=== PATIENT | male | born 1945 | race Caucasian/White ===

== ENCOUNTER 2016-08-13 17:44 | Inpatient (IN) | payer MEDICARE ==
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
--- NOTE | ~2016-08-13 | CT4 ---
[facility] A Service of [facility] & [facility] RADIOLOGY TEXT RESULTS PATIENT: COSTA PRICE LOCATION: [facility] 55-01 : [birth year] UNIT #: [id number] AGE: [address]: Julienne Rowley MD SEX: M ORDER DR: [id number] [facility] [address] [facility]. [place], [place] [address] [id number] I MR#: [id number] Acc #: [id number] NAME: COSTA PRICE : 1945 SEX: M STUDY DATE/TIME: 08/26/2016 11:46 UNIT: [facility] ROOM: [facility] STUDY DESCRIPTION: CT Abd and Pelv Wo Cont Attending Physician: Julienne Rowley M.D. Ordering Physician: Dhaval Avila M.D. Primary Care Physician: Eze Lubin M.D. MEDICAL IMAGING REPORT This report is preliminary unless electronic signature is present EXAM CT abdomen and pelvis without contrast HISTORY Abdomen pain and hematuria for [address] abdomen and pelvis was performed without contrast. There is oral contrast material in the colon. This CT exam was performed with one or more of the following radiation dose reduction techniques: automatic control, adjustment of mA and/or kV according to patient size, and iterative reconstruction. CT ABDOMEN: Mild atelectasis in the posterior lung bases bilaterally. Multiple gallstones layering dependently in the gallbladder, likely measure less than 5 mm. No gallbladder distension. No biliary dilatation. The liver, spleen, pancreas, left kidney, and adrenal glands are normal. 4.7 cm simple cyst in the upper pole of the right kidney is incidentally noted. Normal caliber abdominal aorta. Gastrostomy tube extends into the mid gastric body. Mild gaseous distension of the sigmoid colon could reflect mild localized ileus. CT PELVIS: Mild presacral stranding is nonspecific and could be a chronic or secondary to edema or inflammation. No free fluid. Dumont catheter in the bladder. Appendectomy. No bowel dilatation in the pelvis. Postop changes and degenerative changes in the lower lumbar spine. IMPRESSION 1. No urinary calculi or obstruction. 2. Dumont catheter in the bladder. The bladder is decompressed. 3. Mild gaseous distension of the sigmoid colon could reflect mild localized ileus. 4. Multiple small gallstones. [facility] A Service of [facility] RADIOLOGY TEXT RESULTS PATIENT: COSTA PRICE LOCATION: [facility] [id number] : [birth year] UNIT #: [id number] AGE: [address]: Julienne Rowley MD SEX: M ORDER DR: 5. 4.7 cm simple cyst in the upper pole of the right kidney is incidentally noted. 6. Mild nonspecific presacral stranding could be chronic or could be due to edema or inflammation but there are no adjacent fluid collections in the pelvis. Dictated by... Rohit Adames M.D. THIS IS AN ELECTRONICALLY VERIFIED REPORT Rohit Adames M.D. at 08/27/2016 10:32 PM EARNEST/bety TD: 08/27/2016 01:05 JOB #: [id number] MEDICAL IMAGING REPORT Page 1 of 1 COPY
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
--- NOTE | ~2016-08-13 | CT16 ---
[facility] A Service of [facility] & [facility] RADIOLOGY TEXT RESULTS PATIENT: COSTA PRICE LOCATION: [address] : [birth year] UNIT #: [id number] AGE: [address]: Julienne Rowley MD SEX: M ORDER DR: [id number] [facility] [address]. [place], [place] [address] [id number] I MR#: [id number] Acc #: [id number] NAME: COSTA PRICE : 1945 SEX: M STUDY DATE/TIME: 08/15/2016 UNIT: [facility] ROOM: [facility] STUDY DESCRIPTION: CT Angio Chest for PE Attending Physician: Julienne Rowley M.D. Ordering Physician: Kaity Morales M.D. Primary Care Physician: Eze Lubin M.D. MEDICAL IMAGING REPORT This report is preliminary unless electronic signature is present EXAM CT angiogram chest for pulmonary embolism 08/15/2016 1234 hours HISTORY 71-year-old man with acute hypoxia and respiratory failure today. Evaluate for pulmonary embolism. COMPARISON Chest CT 08/14/2016. TECHNIQUE Dynamic helical CT angiographic images were obtained from the thoracic inlet through the adrenal glands. 3-D sagittal and coronal reconstructions were performed. Contrast was Isovue-370 75 mL. Total exam DLP 545 mGy/cm. This CT exam was performed with one or more of the following radiation dose reduction techniques: automatic exposure control, adjustment of mA and/or kV according to patient size, and iterative reconstruction. FINDINGS Images through the thoracic inlet demonstrate no thyroid mass or adenopathy. There is a right PICC line with tip terminating in the SVC. Images through the chest demonstrate diagnostic quality opacification of the pulmonary arteries which are normal in caliber. There are no filling defects to suggest the presence of pulmonary emboli. The very peripheral lower lobe vessels are difficult to assess given the degree of consolidation but some opacified vessels are present, excluding the presence of large emboli. The aorta is well opacified and normal in caliber. There is no dissection. Cardiac chambers, pericardium and esophagus are normal. STS. [facility] A Service of [facility] & [facility] RADIOLOGY TEXT RESULTS PATIENT: COSTA PRICE LOCATION: [facility] CIC2-05 : 43 UNIT #: [id number] AGE: [address]: Julienne Rowley MD SEX: M ORDER DR: Lung window images demonstrate moderately severe emphysematous change in both lungs. There is pulmonary venous distension without definite edema. There is mild atelectasis in the lingular segment of the left upper lobe. There is persistent airspace density at both medial lung bases similar to 08/14/2016. This could represent pneumonia or atelectasis. No new areas of parenchymal abnormality are seen. IMPRESSION 1. There is no evidence of pulmonary embolism. The very peripheral vessels in the lower lobes are somewhat difficult to assess given the persistent consolidation but no large emboli in the lower lobes are seen. 2. Normal aorta without dissection. 3. Persistent znblh-pwdndls-vcbj-left medial basal airspace changes with air bronchograms. This could represent pneumonia or atelectasis. 4. No significant pleural effusions. 5. Stable underlying emphysematous change with atelectasis in the lingular segment of the left upper lobe. There is essentially no appreciable change from 08/14/2016. 6. Limited views through the upper abdomen demonstrate gallstones in the gallbladder without evidence of cholecystitis. Dictated by... Marie Mary M.D. THIS IS AN ELECTRONICALLY VERIFIED REPORT Marie Mary M.D. at 08/16/2016 9:16 AM THELMA/gray TD: 08/15/2016 18:11 JOB #: [id number] MEDICAL IMAGING REPORT Page 1 of 1 COPY
--- NOTE | ~2016-08-13 | CR72 ---
[facility] A Service of [facility] & [facility] & [facility] RADIOLOGY TEXT RESULTS PATIENT: COSTA PRICE LOCATION: [address] : 43 UNIT #: [id number] AGE: [address]: Julienne Rowley MD SEX: M ORDER DR: [id number] [facility] [address] [place], [place] [address] [id number] I MR#: [id number] Acc #: [id number] NAME: COSTA PRICE : 1945 SEX: M STUDY DATE/TIME: 08/15/2016 17:06 UNIT: [facility] ROOM: [facility] STUDY DESCRIPTION: CR Chest Single View Portable Attending Physician: Julienne Rowley M.D. Ordering Physician: Julienne Rowley M.D. Primary Care Physician: Eze Lubin M.D. MEDICAL IMAGING REPORT This report is preliminary unless electronic signature is present EXAM Portable chest INDICATIONS Follow up pneumothorax. PROCEDURE Frontal view chest. COMPARISON STUDIES 08/15/2016 at 15:28 hours FINDINGS Small right apical pneumothorax is unchanged from the prior. No new dense consolidation. IMPRESSION Stable small right apical pneumothorax Dictated by... Terry Jurado M.D. THIS IS AN ELECTRONICALLY VERIFIED REPORT Terry Jurado M.D. at 08/16/2016 7:36 AM AUBREY/marzena TD: 08/15/2016 23:24 JOB #: [id number] MEDICAL IMAGING REPORT Page 1 of 1 COPY
--- NOTE | ~2016-08-13 | CT71 ---
[facility] A Service of [facility] & [facility] RADIOLOGY TEXT RESULTS PATIENT: COSTA PRICE LOCATION: [place] [address] : 43 UNIT #: [id number] AGE: [address]: Julienne Rowley MD SEX: M ORDER DR: [id number] [facility] [address] [facility]. [place], [place] [address] [id number] I MR#: [id number] Acc #: [id number] NAME: COSTA PRIEC : 1945 SEX: M STUDY DATE/TIME: 08/16/2016 11:55 UNIT: [facility] ROOM: [facility] STUDY DESCRIPTION: CT Head Wo Contrast Attending Physician: Julienne Rowley M.D. Ordering Physician: Julienne Rowley M.D. Primary Care Physician: Eze Lubin M.D. MEDICAL IMAGING REPORT This report is preliminary unless electronic signature is present EXAM CT of the head without contrast 08/16/2016 INDICATION Increasing confusion since August 14, 2016. Patient had a head CT on August 13, 2016, which did not show any acute intracranial findings. TECHNIQUE Axial CT images were obtained from the vertex of the skull through skull base. No intravenous contrast material was administered. This CT exam was performed with one or more of the following radiation dose reduction techniques: automatic exposure control, adjustment of mA and/or kV according to patient size, and iterative reconstruction. FINDINGS No acute intracranial hemorrhage is identified. The patient has diffuse cerebral atrophy with compensatory ventricular dilatation which is in keeping with the age of 71. Exam is degraded by motion artifact. Again no obvious acute intracranial hemorrhage is seen. Particularly pronounced within the posterior fossa. Review of bony windows does not demonstrate any aggressive osseous abnormalities. Patient does have partial opacification of the left mastoid air cells, which was also present on the prior study from August 13, 2016. No focal soft tissue abnormalities are identified. IMPRESSION. 1. Exam is degraded by motion artifact but no obvious acute intracranial process is seen. Specifically there is no evidence of acute hemorrhage, mass lesion or acute infarct. 2. Partial opacification of the left mastoid air cells not significantly changed when compared to the August 13, 2016 exam. [facility] A Service of [facility] & [facility] RADIOLOGY TEXT RESULTS PATIENT: COSTA PRICE LOCATION: [facility] CICCU2-05 : 43 UNIT #: [id number] AGE: [address]: Julienne Rowley MD SEX: M ORDER DR: Dictated by... Zuri Zhu M.D. THIS IS AN ELECTRONICALLY VERIFIED REPORT Zuri Zhu M.D. at 08/16/2016 4:58 PM FLASH/brook TD: 08/16/2016 15:25 JOB #: [id number] MEDICAL IMAGING REPORT Page 1 of 1 COPY
--- NOTE | ~2016-08-13 | CR72 ---
[facility] A Service of [facility] & [facility] RADIOLOGY TEXT RESULTS PATIENT: COSTA PRICE LOCATION: [place] [address] : 43 UNIT #: [id number] AGE: [address]: Julienne Rowley MD SEX: M ORDER DR: [id number] [facility] [address] [facility]. [place], [place] [address] [id number] I MR#: [id number] Acc #: [id number] NAME: COSTA PRICE : 1945 SEX: M STUDY DATE/TIME: 08/15/2016 15:24 UNIT: [facility] ROOM: [facility] STUDY DESCRIPTION: CR Chest Single View Portable Attending Physician: Julienne Rowley M.D. Ordering Physician: Julienne Rowley M.D. Primary Care Physician: Eze Lubin M.D. MEDICAL IMAGING REPORT This report is preliminary unless electronic signature is present EXAM Portable chest INDICATIONS Evaluate Dobbhoff tube placement. COMPARISON STUDIES Comparison with earlier today. FINDINGS There has been placement of a Dobbhoff tube and the tube is coiled within the right lung. There is a tiny right apical pneumothorax. The exam is otherwise unchanged. IMPRESSION Dobbhoff tube is coiled within the right lung. There is a tiny right apical pneumothorax. The findings were discussed with Angelito nurse practitioner in the ICU, at 1600 hours by telephone. Dictated by... Fernie Colon M.D. THIS IS AN ELECTRONICALLY VERIFIED REPORT Fernie Colon M.D. at 08/16/2016 7:45 AM CHARISSA/marzena TD: 08/15/2016 21:27 JOB #: [id number] MEDICAL IMAGING REPORT Page 1 of 1 COPY
--- NOTE | ~2016-08-13 | CO ---
Unit #: [id number] #: [id number] Patient: COSTA PRICE [id number] [place] [address] [facility]. [place], [place] [address] [id number] I MR#: [id number] NAME: COSTA PRICE ROOM: [facility] Age: 71 Sex: M Admission Date: 08/14/2016 : 1945 Attending Physician: Julienne Rowley M.D. Primary Care Physician: Eze Lubin M.D. CONSULTATION REPORT CHIEF COMPLAINT Sepsis. HISTORY OF PRESENT ILLNESS A 71-year-old gentleman was admitted from jail due to respiratory failure, sepsis. In the past, he has had a lumbar surgery for tethered cord release at [facility] on 07/12/2016. That procedure was followed by complications of wound infection with two I and Ds. The last was about 3 to 4 weeks ago. 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 His reports that his lumbar surgery has also improved function in his left leg. On his exam today, he is lethargic, confused, complains of hurting all over. He moves all extremities on request. His lung plascencia show rhonchi in the right lower lobe. His lumbar wound shows interrupted sutures in place. There is no erythema. No induration. No discharge. There is light discoloration around the wound edges. IMPRESSION Lethargy and pain due to sepsis, history of respiratory failure, history of lumbar wound infection. PLAN Plan is to get a CT of his lumbar spine without contrast to evaluate for fluid collection. If significant fluid collection is present, we would recommend I and D of lumbar wound. Dictated by... Santi Melton M.D. RTH/modl TD: 08/16/2016 22:59 JOB #: [id number] Unit #: [id number] #: [id number] Patient: COSTA PRICE CONSULTATION REPORT Page 1 of 1 X Santi Melton MD X CONSULTATION REPORT
--- NOTE | ~2016-08-13 | CT98 ---
[facility] A Service of [facility] & [facility] RADIOLOGY TEXT RESULTS PATIENT: COSTA PRICE LOCATION: [address] : 44 UNIT #: [id number] AGE: [address]: Julienne Rowley MD SEX: M ORDER DR: [id number] [facility] [address] [facility]. [place], [place] [address] [id number] MR#: [id number] Acc #: [id number] NAME: COSTA PRICE : 1945 SEX: M STUDY DATE/TIME: 08/16/2016 12:05 UNIT: [facility] ROOM: [facility] STUDY DESCRIPTION: CT Lumbar Spine Wo Cont Attending Physician: Julienne Rowley M.D. Ordering Physician: Julienne Rowley M.D. Primary Care Physician: Eze Lubin M.D. MEDICAL IMAGING REPORT This report is preliminary unless electronic signature is present EXAM CT lumbar spine without contrast. HISTORY 71-year-old male with abscess after lumbar surgery. Back pain since surgery 07/12/16. TECHNIQUE This CT exam was performed with one or more of the following radiation dose reduction techniques: automatic exposure control, adjustment of mA and/or kV according to patient size, and iterative reconstruction. FINDINGS Thin section axial images performed through the lumbar spine without contrast. Multiplanar reconstructed images reviewed at a workstation. Normal spinal alignment. There are thin marginal syndesmophytes extending from the thoracic into the lumbar region as well as bulky anterior syndesmophytes. Differential would include both ankylosing spondylitis, as well as diffuse idiopathic skeletal hyperostosis. DISH is favored due to the patient's age and the more bulky nature of the syndesmophytes. There is a sizable defect within the posterior elements of L5-S1 level probably represents the sequela of laminectomy. Continued abnormal induration within the soft tissues in this region but a discrete abscess or drainable fluid collection is not seen. There is extensive left L5-S1 facet arthropathy and to a lesser extent right L5-S1 facet arthropathy. At L4-5, there is a moderate to severe spinal stenosis due to a combination of disc bulge osteophyte and extensive facet arthrographic change. At L3-4 there is degenerative disc changes with circumferential disc bulge and facet arthrographic change contributing to moderate central canal stenosis and bilateral foraminal stenosis. At L2-3, mild disc space STS. [facility] A Service of [facility] & [facility] RADIOLOGY TEXT RESULTS PATIENT: COSTA PRICE LOCATION: [facility] CIC2-05 : 44 UNIT #: [id number] AGE: [address]: Julienne Rowley MD SEX: M ORDER DR: narrowing, mild facet arthropathy but no significant spinal or foraminal stenosis. L1-2 the disc spaces maintained. No spinal or foraminal stenosis. Visualized intraabdominal structures and retroperitoneal structures are unremarkable except for mild atherosclerotic changes. IMPRESSION 1. Postsurgical changes, posterior elements L5-S1 compatible with a decompressive laminectomy. There is continued induration of the paraspinal soft tissues within the region of the operative bed but a discrete drainable fluid collection or abscess is not identified though CT is less sensitive for evaluation of soft tissue pathology. 2. Multilevel degenerative disc disease as described above, level by level detail. Spinal and foraminal stenosis most pronounced L3-4, L4-5 due to combination of degenerative disc disease and facet arthropathy. 3. Flowing syndesmophytes, thoracic and lumbar spine, and also within the interspinous ligaments and interspinous processes. I suspect this represents DISH or diffuse idiopathic skeletal hyperostosis. 4. Not mentioned above, there is a sclerotic lesion within the left side of the L1 vertebral body, nonspecific, but imaging features favor benign process such as an enostosis or bone island. Dictated by... Joyce Colon M.D. THIS IS AN ELECTRONICALLY VERIFIED REPORT Joyce Colon M.D. at 08/17/2016 8:37 AM Kenrick TD: 08/16/2016 18:03 JOB #: [id number] MEDICAL IMAGING REPORT Page 1 of 1 COPY
--- NOTE | ~2016-08-13 | CT71 ---
[facility] A Service of [facility] RADIOLOGY TEXT RESULTS PATIENT: COSTA PRICE LOCATION: [facility] [address]34-56 : 44 UNIT #: [id number] AGE: [address]: Julienne Rowley MD SEX: M ORDER DR: [id number] [address] [address] [id number] MR#: [id number] Acc #: [id number] NAME: COSTA PRICE : 1945 SEX: M STUDY DATE/TIME: 08/13/2016 22:46 UNIT: [facility] ROOM: STUDY DESCRIPTION: CT Head Wo Contrast Attending Physician: Deejay Hughes M.D. Ordering Physician: Deejay Hughes M.D. Primary Care Physician: Eze Lubin M.D. MEDICAL IMAGING REPORT This report is preliminary unless electronic signature is present EXAM CT head INDICATION Weakness and lethargy for [address] of the head without contrast. This CT exam was performed with one or more of the following radiation dose reduction techniques: automatic exposure control, adjustment of mA and/or kV according to patient size, and iterative reconstruction. COMPARISON None available. FINDINGS The exam is degraded due to motion. There is no acute intracranial hemorrhage, mass lesion, or acute infarct. Lozano-white matter differentiation is normal. The ventricles and basilar cisterns are normal in size and configuration. No extraaxial collections. There is a small left mastoid effusion. IMPRESSION Motion-degraded exam, however no acute intracranial findings are identified. Dictated by... [facility] A Service of [facility] RADIOLOGY TEXT RESULTS PATIENT: COSTA PRICE LOCATION: [facility] [address]-60 : [birth year] UNIT #: [id number] AGE: [address]: Julienne Rowley MD SEX: M ORDER DR: Dominik Serrato M.D. THIS IS AN ELECTRONICALLY VERIFIED REPORT Dominik Serrato M.D. at 08/14/2016 2:48 AM Naina TD: 08/14/2016 00:21 JOB #: [id number] MEDICAL IMAGING REPORT Page 1 of 1 COPY
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
--- NOTE | ~2016-08-13 | CT57 ---
[facility] A Service of [facility] RADIOLOGY TEXT RESULTS PATIENT: COSTA PRICE [facility] UNIT #: [id number] AGE: [address]: Julienne Rowley MD SEX: M ORDER DR: [id number] [place] [address] [facility]. [place], [place] [address] [id number] I MR#: [id number] Acc #: [id number] NAME: COSTA PRICE : 1945 SEX: M STUDY DATE/TIME: 08/14/2016 3:15 UNIT: [facility] ROOM: [facility] STUDY DESCRIPTION: CT Chest Wo Cont Attending Physician: Julienne Rowley M.D. Ordering Physician: Deejay Hughes M.D. Primary Care Physician: Eze Lubin M.D. MEDICAL IMAGING REPORT This report is preliminary unless electronic signature is present EXAM CT chest INDICATION Weakness, shortness of air and cough. 2-day duration. Acute hypoxia. TECHNIQUE CT head without contrast. This CT exam was performed with one or more of the following radiation dose reduction techniques: automatic exposure control, adjustment of mA and/or kV according to patient size, and iterative reconstruction. COMPARISON Chest radiograph dated 08/14/2016. FINDINGS There is severe emphysema. Patient has near complete volume loss in the right lower lobe with multiple air bronchograms. There is a similar appearing area of consolidation/atelectasis in the left lower lobe. There is minimal airspace opacity in the lingula and left upper lobe. The central airways are patent. The heart is enlarged. There are some borderline enlarged mediastinal lymph nodes. No pericardial or pleural effusion. Limited images of the upper abdomen were obtained. There is no acute findings. Patient does have gallstones. IMPRESSION 1. Areas of consolidation and volume loss in both lower lobes. Given the presence of air bronchograms, this probably represents bilateral [facility] A Service [facility] RADIOLOGY TEXT RESULTS PATIENT: COSTA PRICE [facility] UNIT #: [id number] AGE: [address]: Julienne Rowley MD SEX: M ORDER DR: pneumonia. There is also more mild airspace opacity in the lingula and left upper lobe. 2. Severe emphysema. Dictated by... Dominik Serrato M.D. THIS IS AN ELECTRONICALLY VERIFIED REPORT Dominik Serrato M.D. at 08/14/2016 5:23 AM HUNTER/srikanth TD: 08/14/2016 04:20 JOB #: [id number] MEDICAL IMAGING REPORT Page 1 of 1 COPY
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
--- NOTE | ~2016-08-13 | FU ---
[facility] Nutrition Therapy DATE: 08/18/16 Patient: COSTA PRICE Physician: RAKESHIMR Address: [address] [facility] Room/Bed: [address], Zip: [place] [address] Admit Date: 08/14/16 Date of : 43 Height: 5 11 Weight: 189 86 NUTRITION MONITORING/FOLLOW-UP: Reason: PT SEEN FOR FOLLOW-UP/ENTERAL NUTRITION SUPPORT DX: ACUTE HYPOXIC RESPIRATORY FAILURE, PNA Anthropometrics: 5'11", WT: 189# (86 KG), BMI: 26.4 -ADMIT WEIGHT: 182# Labs: GLU: 139, BUN: 28, ALB: 3.4, K+:3.2, NA+:146 Meds: SOLU-MEDROL, PROTONIX, KCL, ZOFRAN, NACL I&O's: 1194/2415, 5 BMs NOTED Skin: STAGE 1 PRESSURE ULCER COCCYX (PREVIOUSLY NOTED) Estimated Nutrition Needs: 5676-4615 KCAL 83-108 G PRO Assessment: CHART REVIEWED AND EVENTS NOTED. PT SEEN FOR FOLLOW-UP. PT ASLEEP AT TIME OF VISIT. RD ATTEMPTED TO WAKE PT-UNABLE TO WAKE TO VERBAL CUES. PER RN AND CHART, QUALITY ASSURANCE ENGINEER EVALED PT BUT PT TOO LETHARGIC TO COMPLETE THE EVAL. OF NOTE, PT NPO X [address] NOTIFIED RN OF NPO X 4 DAYS, RD TO CONTACT MD. HADDAD TO CONTINUE TO FOLLOW. SEE RECOMMENDATIONS BELOW. Dx: INADEQUATE PROTEIN-ENERGY INTAKE R/T CURRENT DIAGNOSIS, BIPAP AEB NPO STATUS.-ACTIVE/RESOLVED NEW DX: INADEQUATE PROTEIN-ENERGY INTAKE T/Y CURRENT DIAGNOSIS AEB NPO X 4 DAYS. Intervention: 1. NPO X 4 DAYS Monitoring, Evaluation and Goals: 1. ENTERAL NUTRITION; PROVIDE >80% ESTIMATED NUTRIENT NEEDS AT GOAL X 24 HOURS-NOT MET 2. ORAL INTAKE; ADVANCE DIET PER QUALITY ASSURANCE ENGINEER & CONSUME >50% OF MEALS W/NO C/O N/V/D-NOT MET 3. LABS; WNL-NOT MET/ACTIVE MONITOR: -PLANS FOR SUPPORT -QUALITY ASSURANCE ENGINEER RE-EVAL -LABS -WEIGHTS [facility] Nutrition Therapy DATE: 08/18/16 Patient: COSTA PRICE Physician: RAKESHIMR Address: [address] [place] [address]/Bed: [address], Zip: [place] [address] Admit Date: 08/14/16 Date of : 44 Height: 5 11 Weight: 189 86 Recommendations: 1. RECOMMEND FOR QUALITY ASSURANCE ENGINEER RE-EVAL FOR SAFE SWALLOW. OF NOTE, PT WAS RECEIVING MECHANICAL SOFT + THINS AT INTERMEDIATE 2. IF PT UNABLE TO TOLERATE PO INTAKE, PLACE DHT AND BEGIN ALTERNATIVE NUTRITION SUPPORT OF JEVITY 1.5 @ 20 ML/HR, ADVANCE 10 ML q 8 HOURS TO GOAL RATE OF 60 ML/HR -PROVIDES 2160 KCAL, 92 G PRO, 1094 ML FREE H20 ADD FREE H20 FLUSHES PER MD RD WILL F/U PER PROTOCOL PT IS MOD/SEVERELY COMPROMISED Respectfully, YNES SHAH MS, RD, LD Food and Nutritional Services [facility] cc: client file
--- NOTE | ~2016-08-13 | EKG ---
PATIENT: COSTA PRICE UNIT #: [id number] Ventricular Rate: 94 BPM Atrial Rate: 94 BPM P-R Interval: 184 ms QRS Duration: 134 ms Q-T Interval: 386 ms QTC Calculation(Bezet): 482 ms P [place]: 61 degrees Calculated R [place]: -69 degrees Calculated T [place]: 76 degrees Diagnosis Line: Normal sinus rhythm Diagnosis Line: Left axis deviation Diagnosis Line: Left bundle branch block Diagnosis Line: Abnormal ECG Diagnosis Line: No previous ECGs available Diagnosis Line: Confirmed by STEPH JOE MD ([id number]) on Diagnosis Line: 08/14/2016 8:10:17 AM INTERPRETING MD: HEATH TERRELL
--- NOTE | ~2016-08-13 | US84 ---
[id number] [facility] [address] [facility]. [place], [place] [address] [id number] I MR#: [id number] Acc #: [id number] NAME: COSTA PRICE : 1945 SEX: M STUDY DATE/TIME: 08/15/2016 12:03 UNIT: [facility] ROOM: [facility] STUDY DESCRIPTION: US LE Veins Complete Reed Stdy Attending Physician: Julienne Rowley M.D. Ordering Physician: Kaity Morales M.D. Primary Care Physician: Eze Lubin M.D. MEDICAL IMAGING REPORT This report is preliminary unless electronic signature is present EXAM Bilateral leg vein Doppler 08/15 INDICATIONS Leg pain with shortness of air for the last 2 years. History of spine surgery 2 weeks ago. TECHNIQUE Venous ultrasound examination of both lower extremities was performed using grayscale, spectral Doppler and color flow Doppler imaging. FINDINGS The examination is negative. There is no evidence of deep venous thrombus from the groin to the lower calf bilaterally. Visualized greater saphenous veins are also patent. IMPRESSION Negative examination. No evidence of lower extremity deep venous thrombosis. Dictated by... Antolin Wesley Jr., M.D. THIS IS AN ELECTRONICALLY VERIFIED REPORT Antolin Wesley Jr., M.D. at 08/16/2016 10:17 AM BENJI/gray TD: 08/15/2016 18:01 JOB #: [id number] MEDICAL IMAGING REPORT Page 1 of 1 COPY
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
--- NOTE | ~2016-08-13 | CR72 ---
[facility] A Service of [facility] RADIOLOGY TEXT RESULTS PATIENT: COSTA PRICE LOCATION: [place] [id number] : 44 UNIT #: [id number] AGE: [address]: Julienne Rowley MD SEX: M ORDER DR: [id number] [facility] [address] [facility]. [place], [place] [address] [id number] I MR#: [id number] Acc #: [id number] NAME: COSTA PRICE : 1945 SEX: M STUDY DATE/TIME: 08/14/2016 6:26 UNIT: [facility] ROOM: [facility] STUDY DESCRIPTION: CR Chest Single View Portable Attending Physician: Julienne Rowley M.D. Ordering Physician: Julienne Rowley M.D. Primary Care Physician: Eze Lubin M.D. MEDICAL IMAGING REPORT This report is preliminary unless electronic signature is present EXAM Portable chest dated 08/14 COMPARISON 08/13 HISTORY Shortness of breath, cough, weakness since August 14 (1 day) HISTORY Acute hypoxemia and respiratory failure. FINDINGS An AP portable view is obtained. Cardiac size is stable. Right-sided PICC line terminates in the SVC. Redemonstrated are perihilar infiltrates. These have not changed significantly. CONCLUSION No interim change Dictated by... Gordon Jones M.D. THIS IS AN ELECTRONICALLY VERIFIED REPORT Gordon Jones M.D. at 08/15/2016 5:06 PM Carolyn TD: 08/14/2016 07:24 JOB #: [id number] MEDICAL IMAGING REPORT Page 1 of 1 COPY
--- NOTE | ~2016-08-13 | CR72 ---
[facility] A Service of [facility] & [facility] RADIOLOGY TEXT RESULTS PATIENT: COSTA PRICE LOCATION: [place] [address] : [birth year] UNIT #: [id number] AGE: [address]: Julienne Rowley MD SEX: M ORDER DR: [id number] [facility] [address] [facility]. [place], [place] [address] [id number] I MR#: [id number] Acc #: [id number] NAME: COSTA PRICE : 1945 SEX: M STUDY DATE/TIME: 08/15/2016 15:28 UNIT: [facility] ROOM: [facility] STUDY DESCRIPTION: CR Chest Single View Portable Attending Physician: Julienne Rowley M.D. Ordering Physician: Julienne Rowley M.D. Primary Care Physician: Eze Lubin M.D. MEDICAL IMAGING REPORT This report is preliminary unless electronic signature is present EXAM Portable chest INDICATIONS Dobbhoff tube placed in the lung. Concern for pneumothorax. Followup. COMPARISON STUDIES Comparison with 08/15/2016. The Dobbhoff tube has been removed. The right pneumothorax has increased in size. The apical component of the pneumothorax measures roughly 2.5 cm. The remainder the study is unchanged. IMPRESSION Increase in size of right apical pneumothorax as described. Removal of Dobbhoff tube. Findings were discussed with Angelito nurse practitioner in the ICU, by telephone at 1600 hours. Dictated by... Fernie Colon M.D. THIS IS AN ELECTRONICALLY VERIFIED REPORT Fernie Colon M.D. at 08/16/2016 7:45 AM CHARISSA/marzena TD: 08/15/2016 21:30 JOB #: [id number] MEDICAL IMAGING REPORT Page 1 of 1 COPY
--- NOTE | ~2016-08-13 | CR72 ---
[facility] A Service of [facility] & [facility] RADIOLOGY TEXT RESULTS PATIENT: COSTA PRICE LOCATION: [place] [address] : [birth year] UNIT #: [id number] AGE: [address]: Julienne Rowley MD SEX: M ORDER DR: [id number] [facility] [address] [place], [place] [address] [id number] I MR#: [id number] Acc #: [id number] NAME: COSTA PRICE : 1945 SEX: M STUDY DATE/TIME: 08/19/2016 2:17 UNIT: [facility] ROOM: [facility] STUDY DESCRIPTION: CR Chest Single View Portable Attending Physician: Julienne Rowley M.D. Ordering Physician: Kaity Morales M.D. Primary Care Physician: Eze Lubin M.D. MEDICAL IMAGING REPORT This report is preliminary unless electronic signature is present EXAM Portable chest INDICATION Shortness of air today. PROCEDURE Frontal view chest. COMPARISON 08/18/2016 FINDINGS Heart size unchanged. No new dense opacity. No visible pneumothorax. IMPRESSION Stable. Dictated by... Terry Jurado M.D. THIS IS AN ELECTRONICALLY VERIFIED REPORT Terry Jurado M.D. at 08/19/2016 9:57 PM AUBREY/harman TD: 08/19/2016 09:55 JOB #: [id number] MEDICAL IMAGING REPORT Page 1 of 1 COPY
--- NOTE | ~2016-08-13 | DS ---
Unit #: [id number] #: [id number] Patient: COSTA PRICE [id number] [place] [address] [facility]. [place], [place] [address] [id number] I MR#: [id number] NAME: COSTA PRICE ROOM: 55 Age: 71 Sex: M Admission Date: 08/14/2016 : 1945 Discharge Date: 08/28/2016 Attending Physician: Julienne Rowley M.D. Primary Care Physician: Eze Lubin M.D. DISCHARGE SUMMARY DATE OF DISCHARGE Pending August 28, 2016. REASON FOR ADMISSION Acute hypoxic respiratory failure, healthcare-acquired pneumonia. HISTORY OF PRESENT ILLNESS/HOSPITAL COURSE The patient is a very pleasant 71-year-old male, who originally was admitted secondary to acute hypoxic respiratory failure. He had recently undergone spinal surgery at [facility] with postoperative complications, with I believe a postoperative infection, had been re-admitted to [facility] secondary to these issues, underwent a surgical washout and/or evaluation. At that point in time, he was subsequently transferred to a rehab facility. While he was at the rehab facility, he began developing acute onset of shortness of breath. Subsequently, he was transferred to [facility] ER for further evaluation. At that point in time, consideration was given to transfer the patient to [facility]. However, they were on diversion and thus patient was admitted and placed in our ICU. While he was in the ICU, he was treated for healthcare-acquired pneumonia secondary to his recent hospital admissions. Consultation was also placed to Dr. Morales and associates for further evaluation as well as infectious disease services secondary to antibiotic support. Those services continued to follow the patient through ICU course. Gradually, he was weaned off BiPAP and placed on Oxymizer and subsequently transitioned to O2 via nasal cannula between 2-4 L which is his routine baseline. His antibiotics were gradually de-escalated per recommendations of ID services. Will also maintain antibiotics, especially in regard to his recent spinal infection. Blood cultures from hospital course were otherwise negative. Secondary to chronic deconditioning, underwent several speech therapy evaluations and unfortunately had fairly significant dysphagia and was deemed inappropriate to tolerate anything by mouth and therefore consultation was placed to Dr. Crews of gastroenterology services and through this hospital course, patient underwent upper GI endoscopy with Unit #: [id number] #: [id number] Patient: COSTA PRICE PEG tube placement. He successfully was able to tolerate tube feeds. We also placed consultation to Dr. Bernard of cardiology services secondary to recurrent bradycardia as well as a prior history of left bundle branch block and myocardial infarction. They continued to follow the patient through hospital course as well. Beta blockers were held and rhythm and/or heart rate did improve. At the family's request, consultation was placed to Dr. Melton as he had seen the patient in the past from a spinal standpoint. He came, saw, and evaluated the patient. Recommended CT of lower spine which did not show any acute abscess, and he followed initial part of hospital stay in regard to spinal infection and/or recent surgery. He felt as though wound was healing appropriately. Patient then developed a mild acute renal insufficiency. At one point in time, his creatinine elevated to 1.9. His routine baseline is close to 1. We did have issues off and on with his Dumont catheter. His Lasix as well as ROBBY inhibitor were placed on hold. Subsequently, consultation was placed to urology services. The patient did develop some hematuria. His Dumont catheter was replaced. Ultimately, his repeat urinalysis did show yeast UTI. He was initiated on Diflucan. His hematuria is gradually resolving. It is likely a combination of both traumatic as well as acute infection. Unfortunately after trying to remove the Dumont catheter, the patient was unable to void. Therefore, he will be transitioned to rehab with a Dumont catheter at the present time. At this point in time, patient had significant deconditioning as well as weakness secondary to very prolonged hospital course. PT and OT services have both recommended rehab placement at time of discharge. Arrangements are being initiated for patient to be transitioned to rehab at time of discharge. FINAL DISCHARGE DIAGNOSES 1. Acute on chronic respiratory failure. 2. Healthcare-acquired pneumonia with completed antibiotic regimen. 3. Recent spinal surgery with postoperative infection now treated. 4. Chronic immobility syndrome. 5. Chronic deconditioning. 6. Hematuria, now resolving. 7. Yeast urinary tract infection. 8. Chronic obstructive pulmonary disease. 9. Chronic respiratory failure on home O2 between 2 to 4 L. 10. Hypertension. 11. Acute kidney injury, now resolved. 12. Chronic pain syndrome. 13. Dysphagia, status post percutaneous endoscopic gastrostomy tube placement. 14. Malnutrition, likely [id number]. 15. Anemia. 16. Left bundle branch block. 17. Systolic heart failure, followed by Dr. Bernard. Unit #: [id number] #: [id number] Patient: COSTA PRICE FINAL DISCHARGE MEDICATIONS 1. DuoNeb aerosol solution q.6 hours scheduled. 2. Symbicort 160/4.5 two puffs b.i.d. 3. Flomax 0.4 mg daily. 4. Tylenol 650 mg q.6 p.r.n. 5. Cymbalta 30 mg PEG daily. 6. Zofran 4 mg PEG q.6 p.r.n. 7. Norvasc 5 mg PEG daily. 8. [place] 5/325 one tablet q.4 PEG p.r.n. 9. Protonix 40 mg PEG b.i.d. 10. Sodium chloride 3% inhalation mini neb b.i.d. 11. Diflucan 150 PEG daily x5 days. Discharge hemoglobin 8.5. Discharge creatinine 0.5. DISCHARGE DISPOSITION Rehab. Dictated by... Andie Schrader/sonja TD: 08/28/2016 11:03 JOB #: [id number] DISCHARGE SUMMARY Page 1 of 1 X Julienne Rowley MD X DISCHARGE SUMMARY
--- NOTE | ~2016-08-13 | CR72 ---
[facility] A Service of [facility] & [facility] RADIOLOGY TEXT RESULTS PATIENT: COSTA PRICE LOCATION: [place] [address] : 44 UNIT #: [id number] AGE: [address]: Julienne Rowley MD SEX: M ORDER DR: [id number] [place] [id number] [facility]. [place], [place] [address] [id number] I MR#: [id number] Acc #: [id number] NAME: COSTA PRICE : 1945 SEX: M STUDY DATE/TIME: 08/16/2016 4:19 UNIT: [facility] ROOM: [facility] STUDY DESCRIPTION: CR Chest Single View Portable Attending Physician: Julienne Rowley M.D. Ordering Physician: Kaity Morales M.D. Primary Care Physician: Eze Lubin M.D. MEDICAL IMAGING REPORT This report is preliminary unless electronic signature is present EXAM Portable chest INDICATION Right pneumothorax. FINDINGS Single portable AP view of the chest compared to 08/15/2016. The right pneumothorax projects over the 3-4 intercostal space. This is slightly improved from the prior study. Left lung is unchanged. Heart and mediastinal contours stable. IMPRESSION Slight improvement in the right pneumothorax. Dictated by... Dominik Serrato M.D. THIS IS AN ELECTRONICALLY VERIFIED REPORT Dominik Serrato M.D. at 08/16/2016 11:21 PM HUNTER/cee TD: 08/16/2016 06:04 JOB #: [id number] MEDICAL IMAGING REPORT Page 1 of 1 COPY
--- NOTE | ~2016-08-13 | FU ---
[facility] Nutrition Therapy DATE: 08/22/16 Patient: COSTA PRICE Physician: RAKESHIMR Address: [address] Room/Bed: [address] [place] [address], Zip: [place] [address] Admit Date: 08/14/16 Date of : 43 Height: 5 11 Weight: 186 84.5 NUTRITION MONITORING/FOLLOW-UP: Reason: PT SEEN FOR FOLLOW-UP/TPN DX: ACUTE HYPOXIC RESPIRATORY FAILURE Anthropometrics: 5'11", WT: 186# (85 KG), BMI: 25.9 -WEIGHTS HAVE BEEN STABLE SINCE ADMIT Labs: GLU: 188, BUN: 31, ALB: 3.2, ALT:41 Meds: PREDNISONE, FUROSEMIDE, PROTONIX, KCL, MAG SULFATE, ZOFRAN, NACL I&O's: 2820/1754, 4 BMs NOTED Skin: STAGE ONE PRESSURE ULCER COCCYX (PREVIOUSLY NOTED) Estimated Nutrition Needs: 8789-2737 KCAL 83-108 G PRO Assessment: CHART REVIEWED AND EVENTS NOTED. PT SEEN FOR ENTERAL NUTRITION SUPPORT FOLLOW-UP. PT SLEEPY/LETHARGIC AT TIME OF VISIT RECEIVING ALTERNATIVE NUTRITION SUPPORT OF JEVITY 1.2 @ 30 ML/HR. FAMILY AT BEDSIDE REPORTED NO DIET QUESTIONS AT THIS TIME. OF NOTE, PT IS S/P PEG PLACEMENT ON 08/18/16 AND PLANS FOR D/C TO REHAB 2-3 DAYS. PER RN AND CHART, PT TOLERATING ENTERAL NUTRITION SUPPORT, NO ISSUES NOTED. RD TO CONTINUE TO FOLLOW. SEE RECOMMENDATIONS BELOW. Dx: INADEQUATE PROTEIN-ENERGY INTAKE R/T CLINICAL DIAGNOSIS AEB NPO X 4 DAYS.-RESOLVED NEW DX: INADEQUATE ENTERAL NUTRITION INFUSION R/T ENTERAL NUTRITION NOT AT GOAL AEB PT RECEIVING ~42% ESTIMATED NUTRIENT NEEDS. Intervention: 1. ENTERAL NUTRITION SUPPORT Monitoring, Evaluation and Goals: 1. ENTERAL NUTRITION; PROVIDE >80% ESTIMATED NUTRIENT NEEDS X 24 HOURS AT GOAL-NOT MET 2. ORAL INTAKE; ADVANCE DIET PER FINAL EXPENSE AGENT AND CONSUME >50% OF MEALS-NOT MET 3. LABS; WNL-IN PROGRESS NEW GOALS: 1. WEIGHTS; PROMOTE WEIGHT MAINTENANCE MONITOR: [facility] Nutrition Therapy DATE: 08/22/16 Patient: COSTA PRICE Physician: RAKESHIMR Address: [address] Room/Bed: [address] [place] [address], Zip: [place] [address] Admit Date: 08/14/16 Date of : 43 Height: 5 11 Weight: 186 84.5 -TF RATE/RESIDUALS -WEIGHTS -LABS Recommendations: 1. RECOMMEND ENTERAL NUTRITION SUPPORT OF JEVITY 1.5 @ 20 ML/HR, ADVANCE 10 ML q 6 HOURS TO GOAL RATE OF 60 ML/HR -PROVIDES 2160 KCAL, 92 G PRO, 1094 ML FREE H20 FLUSHES ADD FREE H20 FLUSHES OF 200 ML q 4 HOURS TO MEET PT'S CURRENT ESTIMATED FLUID NEEDS OR MANAGE PER MD 2. CONTINUE TO CONSULT FINAL EXPENSE AGENT FOR SAFE SWALLOW 3. CONTINUE TO OPTIMIZE BLOOD SUGAR CONTROL REGIMEN RD WILL F/U PER PROTOCOL PT IS MODERATELY COMPROMISED Respectfully, YNES SHAH MS, RD, LD Food and Nutritional Services [facility] cc: client file
--- NOTE | ~2016-08-13 | CR72 ---
[facility] A Service of [facility] RADIOLOGY TEXT RESULTS PATIENT: COSTA PRICE LOCATION: [address] : [birth year] UNIT #: [id number] AGE: [address]: Julienne Rowley MD SEX: M ORDER DR: [id number] [facility] [address] [facility]. [place], [place] [address] [id number] I MR#: [id number] Acc #: [id number] NAME: COSTA PRICE : 1945 SEX: M STUDY DATE/TIME: 08/16/2016 13:45 UNIT: [facility] ROOM: [facility] STUDY DESCRIPTION: CR Chest Single View Portable Attending Physician: Julienne Rowley M.D. Ordering Physician: Physician Non-Staff Primary Care Physician: Eze Lubin M.D. MEDICAL IMAGING REPORT This report is preliminary unless electronic signature is present EXAM Portable chest x-ray, 08/14/2016. HISTORY Pneumothorax. Acute hypoxia, respiratory failure, pneumothorax yesterday. TECHNIQUE AP radiograph of the chest is presented. COMPARISON 08/16/2016 at 0419 hours. FINDINGS Right extremity approach PICC unchanged. There is a small to moderate right-sided pneumothorax, unchanged from prior examination. It measures about 4.8 cm in width at the apex. No change. There is mild volume loss in the right lung. There is no evidence of tension pneumothorax. Underlying pulmonary vascular prominence persists. Linear interstitial densities in the bilateral lungs, right greater than left. Some of the right lung appearance could reflect atelectatic change given the pneumothorax. Interstitial edema is felt to be present, as well. This appearance is slightly more pronounced than on earlier examination. There are some patchy densities in the right upper and lower lung zone, as well, also likely representing a combination of mild atelectasis and edema. There is a small right pleural effusion. More linear densities at the left lung base favored to be atelectatic in nature. Stable cardiac enlargement. No acute-appearing bony abnormality. Dictated by... Gordon Molina M.D. [facility] A Service of [facility] & [facility] RADIOLOGY TEXT RESULTS PATIENT: COSTA PRICE LOCATION: [facility] : 43 UNIT #: [id number] AGE: [address]: Julienne Rowley MD SEX: M ORDER DR: THIS IS AN ELECTRONICALLY VERIFIED REPORT Gordon Molina M.D. at 08/17/2016 5:57 PM Carey TD: 08/16/2016 17:15 JOB #: [id number] MEDICAL IMAGING REPORT Page 1 of 1 COPY
--- NOTE | ~2016-08-13 | OR ---
Unit #: [id number] #: [id number] Patient: COSTA PRICE [id number] [address] [address] [id number] I MR#: [id number] NAME: COSTA PRICE ROOM: [facility] Date of Procedure: 08/18/2016 Admission Date: 08/14/2016 Surgeon: Nik Crews M.D. : 1945 Attending Physician: Julienne Rowley M.D. Primary Care Physician: Eze Lubin M.D. OPERATIVE REPORT PROCEDURE PERFORMED Esophagogastroduodenoscopy with PEG tube placement. INDICATIONS FOR PROCEDURE The patient with dysphagia, severe aspiration risk, undergoing evaluation with EGD for PEG tube placement. MEDICATIONS Monitored anesthesia. POSTOPERATIVE FINDINGS 1. EGD exam was completed to descending duodenum. Mild gastritis was noted. Rest of the exam was normal. 2. Successful placement of G-tube by push method in gastric body. PLAN See inpatient orders. DESCRIPTION OF PROCEDURE The patient was explained of the procedure, risks, and benefits. Informed consent was obtained from , fountain operator. Endo Team was brought to the ICU. Monitored anesthesia was given. The scope was introduced into the mouth and esophagus, stomach, duodenum, and distal duodenum. I identified a spot for the G-tube placement after finishing the exam. The skin was prepped. A small incision was made. Trocar cannula was passed through the incision and then pulled out. A wire was pushed through the trocar and then pulled out of the patient's mouth using a scope on the snare on the other side. A push method tube was then placed over the wire and pulled out of anterior abdominal wall, where it was secured with an external bumper. The scope was reintroduced into the mouth and inner bumper was nicely in place. No complications were noted. Gently, the scope was pulled out. He tolerated it well. Dictated by... Andie Elizabeth/red TD: 08/18/2016 18:16 JOB #: [id number] Unit #: [id number] #: [id number] Patient: COSTA PRICE CC: zEe Lubin M.D. OPERATIVE REPORT Page 1 of 1 X Nik Crews MD PROCEDURE OPERATIVE NOTE
--- NOTE | ~2016-08-13 | FU ---
[facility] Nutrition Therapy DATE: 08/25/16 Patient: COSTA PRICE Physician: RAKESHIMR Address: [address] [facility] [facility] [address] Room/Bed: [address] [place] [address], Zip: [place] [address] Admit Date: 08/14/16 Date of : 43 Height: 5 11 Weight: 193 87.7 NUTRITION MONITORING/FOLLOW-UP: Reason: ENTERAL NUTRITION SUPPORT FOLLOW-UP Anthropometrics: 5'11", WT: 193# (87.7 KG), BMI 26.9. - ADMIT WEIGHT 182# Labs: GLU 120 BUN 50 CA++ 8.0 ALB 3.2 Meds: NORVASC, NACL, PROTONIX, PREDNISONE I&O's: 4120/3700 Skin: STAGE ONE PRESSURE ULCER COCCYX (PREVIOUSLY NOTED) Estimated Nutrition Needs: 9453-1952 KCAL 83-108 G PRO Assessment: CHART REVIEWED, EVENTS NOTED. PT SEEN FOR ENTERAL NUTRITION SUPPORT FOLLOW UP. PT AWAKE AND RESPONSIVE AT TIME OF VISIT RECEIVING JEVITY 1.5 @ 60 ML/HR. PT HAD NO QUESTIONS AT THIS TIME. PER RN, PT IS TOLERATING ENTERAL NUTRITION SUPPORT, NO ISSUES AT THIS TIME (MINIMAL RESIDUALS). PT RECEIVING RD WILL CONTINUE TO FOLLOW. SEE RECOMMENDATIONS BELOW. Dx: INADEQUATE ENTERAL NUTRITION INTAKE INFUSION R/T ENTERAL NUTRITION NOT AT GOAL AEB PT RECEIVING ~42% ESTIMATED NUTRIENT NEEDS.-RESOLVED NEW DX: ADEQUATE ENTERAL NUTRITION INTAKE INFUSION R/T ENTERAL NUTRITION AT GOAL AEB PT RECEIVING ~85% ESTIMATED NUTRITION NEEDS (PER PUMP HISTORY). Intervention: 1. ENTERAL NUTRITION SUPPORT Monitoring, Evaluation and Goals: 1. ENTERAL NUTRITION; PROVIDE >80% ESTIMATED NUTRIENT NEEDS X 24 HOURS AT GOAL-MET 2. ORAL INTAKE; ADVANCE DIET PER CORN COOKER AND CONSUME >50% OF MEALS- NOT MET 3. LABS; WNL- IN PROGRESS 4. WEIGHTS; PROMOTE WEIGHT MAINTAINENCE- IN PROGRESS MONITOR: [facility] Nutrition Therapy DATE: 08/25/16 Patient: COSTA PRICE Physician: BROOKR Address: [address] [facility] [address] Room/Bed: [address] [place] [address], Zip: [place] [address] Admit Date: 08/14/16 Date of : 43 Height: 5 11 Weight: 193 87.7 -TF RATE/RESIDUALS -WEIGHTS -LABS Recommendations: 1. RECOMMEND CONTINUED ENTERAL NUTRITION SUPPORT OF JEVITY 1.5 @ 60 ML/HR TO REACH GOAL INTAKE -PROVIDES 2160 KCAL, 92 G PRO,1094 ML FREE H20 FLUSHES ADD FREE H20 FLUSHES OF 200 ML q 4 HOURS TO MEET PT'S CURRENT ESTIMATED FLUID NEEDS OR MANAGE PER MD. 2. CONTINUE TO CONSULT CORN COOKER FOR SAFE SWALLOW 3. CONTINUE TO OPTIMIZE BLOOD SUGAR REGIMEN. RD WILL F/U PER PROTOCOL. PT IS AT MODERATE NUTRITIONAL RISK. Respectfully, MARISOL MONROE, FIRE AND SAFETY HELPER YNES SHAH MS, RD, LD Food and Nutritional Services [facility] cc: client file
--- NOTE | ~2016-08-13 | CR72 ---
[facility] A Service of [facility] & [facility] RADIOLOGY TEXT RESULTS PATIENT: COSTA PRICE LOCATION: [place] [address] : [birth year] UNIT #: [id number] AGE: [address]: Julienne Rowley MD SEX: M ORDER DR: [id number] [facility] [address] [place], [place] [address] [id number] I MR#: [id number] Acc #: [id number] NAME: COSTA PRICE : 1945 SEX: M STUDY DATE/TIME: 08/20/2016 4:21 UNIT: [facility] ROOM: [facility] STUDY DESCRIPTION: CR Chest Single View Portable Attending Physician: Julienne Rowley M.D. Ordering Physician: Kaity Morales M.D. Primary Care Physician: Eze Lubin M.D. MEDICAL IMAGING REPORT This report is preliminary unless electronic signature is present EXAM Portable chest INDICATION Shortness of air and cough. PROCEDURE Frontal view chest. COMPARISON 08/19/2016 FINDINGS Stable heart size. Persistent patchy opacities. No new dense consolidation or visible pneumothorax. IMPRESSION Stable. Dictated by... Terry Jurado M.D. THIS IS AN ELECTRONICALLY VERIFIED REPORT Terry Jurado M.D. at 08/20/2016 10:05 PM AUBREY/harman TD: 08/20/2016 07:18 JOB #: [id number] MEDICAL IMAGING REPORT Page 1 of 1 COPY
--- NOTE | ~2016-08-13 | CR72 ---
[facility] A Service of [facility] & [facility] RADIOLOGY TEXT RESULTS PATIENT: COSTA PRICE LOCATION: [place] [address] : [birth year] UNIT #: [id number] AGE: [address]: Julienne Rowley MD SEX: M ORDER DR: [id number] [place] [id number] [place], [place] [address] [id number] I MR#: [id number] Acc #: [id number] NAME: COSTA PRICE : 1945 SEX: M STUDY DATE/TIME: 08/18/2016 4:48 UNIT: [facility] ROOM: [facility] STUDY DESCRIPTION: CR Chest Single View Portable Attending Physician: Julienne Rowley M.D. Ordering Physician: Kaity Morales M.D. Primary Care Physician: Eze Lubin M.D. MEDICAL IMAGING REPORT This report is preliminary unless electronic signature is present EXAM Single view chest INDICATION Cough and shortness of air. FINDINGS Single portable AP view of the chest compared to 08/17/2016. The right pneumothorax has resolved. Right PICC remains in place. Patchy bilateral airspace opacities, right greater than left are similar to the prior study. No pneumothorax. IMPRESSION 1. Resolution of the small right pneumothorax. 2. No change in bilateral airspace opacities. Dictated by... Dominik Serrato M.D. THIS IS AN ELECTRONICALLY VERIFIED REPORT Dominik Serrato M.D. at 08/22/2016 7:03 AM HUNTER/cee TD: 08/18/2016 06:17 JOB #: [id number] MEDICAL IMAGING REPORT Page 1 of 1 COPY
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
--- NOTE | ~2016-08-13 | CR72 ---
[facility] A Service of [facility] & [facility] RADIOLOGY TEXT RESULTS PATIENT: COSTA PRICE LOCATION: [place] [address] : 44 UNIT #: [id number] AGE: [address]: Julienne Rowley MD SEX: M ORDER DR: [id number] [facility] [address] [place], [place] [address] [id number] I MR#: [id number] Acc #: [id number] NAME: COSTA PRICE : 1945 SEX: M STUDY DATE/TIME: 08/15/2016 3:59 UNIT: [facility] ROOM: [facility] STUDY DESCRIPTION: CR Chest Single View Portable Attending Physician: Julienne Rowley M.D. Ordering Physician: Parish Campbell M.D. Primary Care Physician: Eze Lubin M.D. MEDICAL IMAGING REPORT This report is preliminary unless electronic signature is present EXAM Single view chest INDICATIONS Respiratory failure. Hypoxia. FINDINGS Single portable AP view of the chest compared 08/14/2016. Right PICC remains in place. Heart and mediastinal contours are unchanged. There is some increased interstitial markings in both lungs, similar to the prior study. No pneumothorax or significant effusion. IMPRESSION No interval change. Dictated by... Dominik Serrato M.D. THIS IS AN ELECTRONICALLY VERIFIED REPORT Dominik Serrato M.D. at 08/17/2016 12:23 AM HUNTER/brittany TD: 08/15/2016 08:01 JOB #: [id number] MEDICAL IMAGING REPORT Page 1 of 1 COPY
--- NOTE | ~2016-08-13 | CR72 ---
[facility] A Service of [facility] & [facility] RADIOLOGY TEXT RESULTS PATIENT: COSTA PRICE LOCATION: [place] [address] : 44 UNIT #: [id number] AGE: [address]: Julienne Rowley MD SEX: M ORDER DR: [id number] [facility] [address] [place], [place] [address] [id number] I MR#: [id number] Acc #: [id number] NAME: COSTA PRICE : 1945 SEX: M STUDY DATE/TIME: 08/17/2016 3:29 UNIT: [facility] ROOM: [facility] STUDY DESCRIPTION: CR Chest Single View Portable Attending Physician: Julienne Rowley M.D. Ordering Physician: Kaity Morales M.D. Primary Care Physician: Eze Lubin M.D. MEDICAL IMAGING REPORT This report is preliminary unless electronic signature is present EXAM Portable chest INDICATION Right pneumothorax. FINDINGS Single portable AP view of the chest compared to 08/16/2016. Small right apical pneumothorax is slightly improved. This is approximately 2 cm from the lung apex compared to 4.8 cm previously. Right PICC remains in place. Bilateral airspace opacities are similar to the prior study. IMPRESSION Decreased size of the small right apical pneumothorax. Dictated by... Dominik Serrato M.D. THIS IS AN ELECTRONICALLY VERIFIED REPORT Dominik Serrato M.D. at 08/17/2016 4:44 AM HUNTER/srikanth TD: 08/17/2016 04:41 JOB #: [id number] MEDICAL IMAGING REPORT Page 1 of 1 COPY
--- NOTE | ~2016-08-13 | CR6 ---
[facility] A Service of [facility] & [facility] RADIOLOGY TEXT RESULTS PATIENT: COSTA PRICE LOCATION: [facility] [id number] : 44 UNIT #: [id number] AGE: [address]: Julienne Rowley MD SEX: M ORDER DR: [id number] [facility] [address] [place], [place] [address] [id number] I MR#: [id number] Acc #: [id number] NAME: COSTA PRICE : 1945 SEX: M STUDY DATE/TIME: 08/23/2016 1232 UNIT: [facility] ROOM: [facility] STUDY DESCRIPTION: CR Abdomen Portable Sng View Attending Physician: Julienne Rowley M.D. Ordering Physician: Kaity Morales M.D. Primary Care Physician: Eze Lubin M.D. MEDICAL IMAGING REPORT This report is preliminary unless electronic signature is present EXAM Abdomen portable 08/23/2016 1232 hours HISTORY 71-year-old man with abdominal pain and blood in urine today. COMPARISON Chest x-ray 08/20/2016. No prior abdominal film for comparison. FINDINGS Supine views of the abdomen were performed. 1 film includes most of the left abdomen and 1 including includes most of the right abdomen. There is a nonspecific bowel gas pattern. A gastrostomy tube is seen in the stomach. There is oral contrast material within the right colon and distal small bowel. It is not clear to me when this was administered. There is no small bowel obstruction. There are multiple punctate hyperdensities seen in the right mid abdomen where there is some oral contrast material present. This could represent tiny stones in the right kidney or artifact related to stool contents. No definite stones are seen over the left kidney. There are lower pelvic phleboliths. IMPRESSION 1. Limited exam demonstrates dense oral contrast material through the right colon. This partially obscures the right kidney. 2. Gastrostomy tube is present in the stomach. There is no small bowel obstruction. 3. There are punctate hyperdensities projecting in the right mid abdomen where there is some oral contrast material present as well. Tiny stones within the right kidney cannot be excluded. No definite left renal or ureteral calculus is seen. Dictated by... [facility] A Service of [facility] RADIOLOGY TEXT RESULTS PATIENT: COSTA PRICE LOCATION: [facility] [id number] : [birth year] UNIT #: [id number] AGE: [address]: Julienne Rowley MD SEX: M ORDER DR: Marie Mary M.D. THIS IS AN ELECTRONICALLY VERIFIED REPORT Marie Mary M.D. at 08/24/2016 9:26 AM Franc TD: 08/23/2016 16:36 JOB #: [id number] MEDICAL IMAGING REPORT Page 1 of 1 COPY
--- NOTE | ~2016-08-13 | CR72 ---
[facility] A Service of [facility] RADIOLOGY TEXT RESULTS PATIENT: COSTA PRICE LOCATION: [facility] : 44 UNIT #: [id number] AGE: [address]: Deejay Hughes MD SEX: M ORDER DR: [id number] [facility] [address] [place], [place] [address] [id number] E MR#: [id number] Acc #: [id number] NAME: COSTA PRICE : 1945 SEX: M STUDY DATE/TIME: 08/13/2016 19:09 UNIT: [facility] ROOM: STUDY DESCRIPTION: CR Chest Single View Portable Attending Physician: Deejay Hughes M.D. Ordering Physician: Deejay Hughes M.D. Primary Care Physician: Eze Lubin M.D. MEDICAL IMAGING REPORT This report is preliminary unless electronic signature is present EXAM Frontal chest, 08/13/2016 INDICATIONS 71-year-old male with shortness of air today. TECHNIQUE Frontal chest was performed. COMPARISON None. FINDINGS There is a right-sided PICC line. Cardiac silhouette is within normal limits for technique. Vascularity within normal limits. There are coarsened interstitial markings suggestive of underlying emphysema and scarring. There are more confluent interstitial and faint alveolar opacities in the mid lung zones left greater than right, suspicious for small areas of pneumonitis or alveolitis. Follow up to resolution after appropriate therapy is recommended. We have no comparisons. No pneumothorax or effusion. There is old, healed granulomatous disease. Probable more confluent scarring in the left lower lobe. IMPRESSION 1. Imaging findings suggestive of chronic interstitial lung disease with superimposed areas of acute infiltrate in the perihilar and mid lung zones, left greater than right. Follow up to clearing after appropriate therapy is recommended. We have no comparisons. 2. There is no pneumothorax or effusion. Old healed granulomatous disease. 3. Incidental degenerative change in the shoulders bilaterally. 4. There may be pneumatoceles in both lower lobes. Suggest comparison to prior outside chest x-rays, if available for this patient, or at [facility] A Service of [facility] & [facility] RADIOLOGY TEXT RESULTS PATIENT: COSTA PRICE LOCATION: [facility] : 44 UNIT #: [id number] AGE: [address]: Deejay Hughes MD SEX: M ORDER DR: least imaging followup to resolution after appropriate therapy. STAT * RESULT Dictated by... Adis Kapoor M.D. THIS IS AN ELECTRONICALLY VERIFIED REPORT Adis Kapoor M.D. at 08/13/2016 8:42 PM LUIS CARLOS/sada TD: 08/13/2016 20:05 JOB #: [id number] MEDICAL IMAGING REPORT Page 1 of 1 COPY
[2016-08-13 18:45] LABS: BASOPHIL# 0.1 X10e3 (0-0.3); BASOPHIL% 0.7 % (0-2.5); EOSINOPHIL# 0.8 X10e3 (0-0.7); EOSINOPHIL% 6.8 % (0.0-7.0); HEMATOCRIT 32.7 % (38.0-50.0); HEMOGLOBIN 10.7 gm/dL (13.0-16.0); LYMPHOCYTE# 1.2 X10e3 (1.0-3.5); LYMPHOCYTE% 10.7 % (17.0-45.0); MEAN CELL VOLUME 89.9 FL (83-96); MEAN CORPUSCULAR HEMOGLOBIN 29.6 PG (28-34); MEAN CORPUSCULAR HGB CONC 32.9 g/dL (30-36); MEAN PLATELET VOLUME 9.5 FL (6.5-11.5); MONOCYTE# 0.7 X10e3 (0-1.0); MONOCYTE% 6.3 % (3.0-12.0); NEUTROPHIL# 8.6 X10e3 (1.5-7.1); NEUTROPHIL% 75.5 % (40-75); PLATELET COUNT 184 X10e3 (140-420); RED BLOOD COUNT 3.63 X10e (3.90-5.60); RED CELL DISTRIBUTION WIDTH 13.8 % (11.0-15.5); WHITE BLOOD COUNT 11.3 X10e3 (4.0-10.5)
[2016-08-13 18:52] LABS: DIFF IND NO
[2016-08-13 18:53] LABS: ARTERIAL BLD GAS O2 SATURATION 90.7 % (90.0-100.0); ARTERIAL BLOOD GAS CARBOXY HB 1.6 %sat (0.0-9.0); ARTERIAL BLOOD GAS HCO3 28.6 mmol/L; ARTERIAL BLOOD GAS MET HB 0.6 %sat (0.0-2.0); ARTERIAL BLOOD GAS PCO2 49.1 mmHg (35.0-45.0); ARTERIAL BLOOD GAS pH 7.373 (7.350-7.450)
[2016-08-13 18:54] LABS: ARTERIAL BLOOD GAS ALLEN TEST NORMAL; ARTERIAL BLOOD GAS ART SITE RIGHT RADIAL; ARTERIAL BLOOD GAS DELIVERY NASAL CANNULA; ARTERIAL BLOOD GAS PO2 64.6 mmHg (80.0-100); ARTERIAL DRAW? YES
[2016-08-13 19:00] LABS: INR 1.2; PARTIAL THROMBOPLASTIN TIME 27.4 SECONDS (23.5-31.3); PROTHROMBIN TIME (PATIENT) 12.5 SECONDS (9.6-11.5)
[2016-08-13 19:09] LABS: URINE APPEARANCE CLEAR; URINE BILIRUBIN NEG (NEG); URINE BLOOD NEG (NEG); URINE COLOR YELLOW; URINE GLUCOSE NEG (NEG); URINE KETONE 1+ (NEG); URINE LEUKOCYTE ESTERASE NEG (NEG); URINE NITRATE NEG (NEG); URINE PROTEIN 1+ (NEG); URINE SPECIFIC GRAVITY 1.025 (1.003-1.035); URINE UROBILINOGEN 0.2 MG/DL (NEG)
[2016-08-13 19:12] LABS: ALBUMIN SERUM 3.3 g/dL (3.5-5.0); BILIRUBIN, DIRECT 0.2 mg/dL (0.0-0.2); BILIRUBIN,INDIRECT 0.6 mg/dL (0.0-0.9); BILIRUBIN,TOTAL 0.8 mg/dL (0.2-2.0); BUN/CREATININE RATIO 38.57; CALCIUM SERUM 9.3 mg/dL (8.4-10.2); CREATININE SERUM 0.7 mg/dL (0.6-1.4); GLOM FILT RATE Estimated 94.3 mL/min (>60); MAGNESIUM 2.3 mg/dL (1.6-3.0); PHOSPHOROUS 3.5 mg/dL (2.5-4.6); POTASSIUM 4.2 mmol/L (3.5-5.1); PROTEIN TOTAL SERUM 8.1 g/dL (6.0-8.3)
[2016-08-13 19:12] LABS: URINE BACTERIA AUWI NEG (NEGATIVE); URINE SQUAMOUS EPITHELIAL CELL NONE SEEN /[HPF]
[2016-08-13 19:16] LABS: CULTURE INDICATED? NO; URINE SOURCE CATH
[2016-08-13 20:26] LABS: POC - CKMB 1.4 ng/mL (0.0-7.9); POC - TROPONIN <0.05 ng/mL (<=0.05)
[2016-08-13 20:46] LABS: POC - TROPONIN <0.05 ng/mL (<=0.05)
[2016-08-13] MEDS ORDERED: LOPID600 MG PO (21:09)
[2016-08-13] MEDS ORDERED: HYDROCODON-ACE1 EAC9 PO (21:09)
[2016-08-13] MEDS ORDERED: ALPRAZOLAM PO (21:10)
[2016-08-13] MEDS ORDERED: VITAMIN C500 MG PO (21:11)
[2016-08-13] MEDS ORDERED: SENNA8.6 M1 PO (21:12)
[2016-08-13] MEDS ORDERED: REMERON15 MG PO (21:13)
[2016-08-13] MEDS ORDERED: LYRICA100 MG PO (21:13)
[2016-08-13] MEDS ORDERED: ALENDRONATE SOD70 M1 PO (21:14)
[2016-08-13] MEDS ORDERED: ZINC SULFATE220 M1 PO (21:14)
[2016-08-13] MEDS ORDERED: FLOMAX0.4 M1 PO (21:14)
[2016-08-13 21:28] LABS: ARTERIAL BLD GAS O2 SATURATION 98.3 % (90.0-100.0); ARTERIAL BLOOD GAS CARBOXY HB 1.1 %sat (0.0-9.0); ARTERIAL BLOOD GAS HCO3 27.1 mmol/L; ARTERIAL BLOOD GAS MET HB 0.6 %sat (0.0-2.0); ARTERIAL BLOOD GAS PCO2 48.4 mmHg (35.0-45.0); ARTERIAL BLOOD GAS pH 7.357 (7.350-7.450)
[2016-08-13 21:30] LABS: ARTERIAL BLOOD GAS ALLEN TEST NORMAL; ARTERIAL BLOOD GAS ART SITE RIGHT RADIAL; ARTERIAL DRAW? YES
[2016-08-13] MEDS ORDERED: DITROPAN PO (21:55)
[2016-08-13] MEDS ORDERED: MIRALAX17 GM PO (21:56)
[2016-08-13] MEDS ORDERED: VITAMIN D-32000 UNI1 PO (21:58)
[2016-08-13] MEDS ORDERED: BISACODYL10 MG PR (21:58)
[2016-08-13] MEDS ORDERED: HEPARIN 1,1000 UNIT/ SUBQ (22:00)
[2016-08-13] MEDS ORDERED: MORPHINE S30 MG/301 PO (22:01)
[2016-08-13] MEDS ORDERED: NIACIN500 M2 PO (22:01)
[2016-08-13] MEDS ORDERED: M.V.I. ADULT10 ML (22:02)
[2016-08-13] MEDS ORDERED: ADRENOID CAPSU1 EACH PO (22:03)
[2016-08-13] MEDS ORDERED: OMEPRAZOLE20 M1 PO (22:04)
[2016-08-13] MEDS ORDERED: STRIVERDI RESPIM4 GM INH (22:04)
[2016-08-13] MEDS ORDERED: PROAIR RESPICL90 MCG INH (22:05)
[2016-08-13] MEDS ORDERED: TYLENOL325 M1 PO (22:06)
[2016-08-13] MEDS ORDERED: SYMBICORT 160/4.6 G1 INH (22:06)
[2016-08-14 02:54] LABS: BASOPHIL# 0.1 X10e3 (0-0.3); BASOPHIL% 0.5 % (0-2.5); EOSINOPHIL# 0.7 X10e3 (0-0.7); EOSINOPHIL% 6.9 % (0.0-7.0); HEMATOCRIT 31.8 % (38.0-50.0); HEMOGLOBIN 10.4 gm/dL (13.0-16.0); LYMPHOCYTE# 1.1 X10e3 (1.0-3.5); LYMPHOCYTE% 11.8 % (17.0-45.0); MEAN CELL VOLUME 90.4 FL (83-96); MEAN CORPUSCULAR HEMOGLOBIN 29.7 PG (28-34); MEAN CORPUSCULAR HGB CONC 32.9 g/dL (30-36); MEAN PLATELET VOLUME 9.2 FL (6.5-11.5); MONOCYTE# 0.6 X10e3 (0-1.0); MONOCYTE% 6.6 % (3.0-12.0); NEUTROPHIL# 7.1 X10e3 (1.5-7.1); NEUTROPHIL% 74.2 % (40-75); PLATELET COUNT 180 X10e3 (140-420); RED BLOOD COUNT 3.52 X10e (3.90-5.60); RED CELL DISTRIBUTION WIDTH 14.4 % (11.0-15.5); WHITE BLOOD COUNT 9.6 X10e3 (4.0-10.5)
[2016-08-14 03:28] LABS: ALBUMIN SERUM 3.2 g/dL (3.5-5.0); BILIRUBIN,TOTAL 0.7 mg/dL (0.2-2.0); BUN/CREATININE RATIO 34.28; CALCIUM SERUM 8.8 mg/dL (8.4-10.2); CREATININE SERUM 0.7 mg/dL (0.6-1.4); GLOM FILT RATE Estimated 94.3 mL/min (>60); MAGNESIUM 2.1 mg/dL (1.6-3.0); POTASSIUM 3.9 mmol/L (3.5-5.1); PROTEIN TOTAL SERUM 7.8 g/dL (6.0-8.3)
[2016-08-14 03:40] LABS: DIFF IND NO
[2016-08-14 04:34] LABS: ARTERIAL BLOOD GAS CARBOXY HB 0.9 %sat (0.0-9.0); ARTERIAL BLOOD GAS HCO3 25.6 mmol/L; ARTERIAL BLOOD GAS MET HB 0.7 %sat (0.0-2.0); ARTERIAL BLOOD GAS PCO2 42.9 mmHg (35.0-45.0); ARTERIAL BLOOD GAS pH 7.384 (7.350-7.450)
[2016-08-14 04:39] LABS: ARTERIAL BLOOD GAS ALLEN TEST NORMAL; ARTERIAL BLOOD GAS ART SITE RIGHT RADIAL; ARTERIAL DRAW? YES
[2016-08-14 04:42] LABS: CK TOTAL 18 IU/L (36-174)
[2016-08-14 11:29] LABS: CK TOTAL 19 IU/L (36-174)
[2016-08-15 04:02] LABS: ARTERIAL BLD GAS O2 SATURATION 93.9 % (90.0-100.0); ARTERIAL BLOOD GAS HCO3 24.6 mmol/L; ARTERIAL BLOOD GAS MET HB 0.5 %sat (0.0-2.0); ARTERIAL BLOOD GAS PCO2 40.9 mmHg (35.0-45.0); ARTERIAL BLOOD GAS pH 7.388 (7.350-7.450)
[2016-08-15 04:05] LABS: ARTERIAL BLOOD GAS ART SITE LEFT BRACHIAL; ARTERIAL BLOOD GAS DELIVERY NASAL CANNULA; ARTERIAL BLOOD GAS PO2 67.6 mmHg (80.0-100); ARTERIAL DRAW? YES
[2016-08-15 04:07] LABS: BASOPHIL% 0.1 % (0-2.5); HEMATOCRIT 28.9 % (38.0-50.0); HEMOGLOBIN 9.3 gm/dL (13.0-16.0); LYMPHOCYTE# 0.5 X10e3 (1.0-3.5); LYMPHOCYTE% 10.5 % (17.0-45.0); MEAN CELL VOLUME 91.6 FL (83-96); MEAN CORPUSCULAR HEMOGLOBIN 29.5 PG (28-34); MEAN CORPUSCULAR HGB CONC 32.3 g/dL (30-36); MEAN PLATELET VOLUME 9.5 FL (6.5-11.5); MONOCYTE# 0.1 X10e3 (0-1.0); MONOCYTE% 1.4 % (3.0-12.0); NEUTROPHIL# 4.4 X10e3 (1.5-7.1); PLATELET COUNT 161 X10e3 (140-420); RED BLOOD COUNT 3.15 X10e (3.90-5.60)
[2016-08-15 04:08] LABS: DIFF IND NO
[2016-08-15 04:33] LABS: BILIRUBIN,TOTAL 0.6 mg/dL (0.2-2.0); CALCIUM SERUM 8.4 mg/dL (8.4-10.2); CREATININE SERUM 0.5 mg/dL (0.6-1.4); GLOM FILT RATE Estimated 108.3 mL/min (>60); MAGNESIUM 2.1 mg/dL (1.6-3.0); PROTEIN TOTAL SERUM 7.3 g/dL (6.0-8.3)
[2016-08-15 05:01] LABS: PROCALCITONIN 0.13 NG/ML
[2016-08-16 04:11] LABS: BASOPHIL% 0.2 % (0-2.5); HEMATOCRIT 27.7 % (38.0-50.0); HEMOGLOBIN 9.1 gm/dL (13.0-16.0); LYMPHOCYTE# 0.7 X10e3 (1.0-3.5); LYMPHOCYTE% 9.4 % (17.0-45.0); MEAN CELL VOLUME 91.2 FL (83-96); MEAN CORPUSCULAR HGB CONC 32.9 g/dL (30-36); MEAN PLATELET VOLUME 9.4 FL (6.5-11.5); MONOCYTE# 0.3 X10e3 (0-1.0); MONOCYTE% 3.6 % (3.0-12.0); NEUTROPHIL# 6.2 X10e3 (1.5-7.1); NEUTROPHIL% 86.8 % (40-75); PLATELET COUNT 169 X10e3 (140-420); RED BLOOD COUNT 3.04 X10e (3.90-5.60); RED CELL DISTRIBUTION WIDTH 13.7 % (11.0-15.5); WHITE BLOOD COUNT 7.1 X10e3 (4.0-10.5)
[2016-08-16 04:12] LABS: DIFF IND NO
[2016-08-16 04:40] LABS: BILIRUBIN,TOTAL 0.7 mg/dL (0.2-2.0); CALCIUM SERUM 8.3 mg/dL (8.4-10.2); CREATININE SERUM 0.5 mg/dL (0.6-1.4); GLOM FILT RATE Estimated 108.3 mL/min (>60)
[2016-08-16 04:47] LABS: POTASSIUM 2.9 mmol/L (3.5-5.1)
[2016-08-16 04:48] LABS: ARTERIAL BLD GAS O2 SATURATION 96.4 % (90.0-100.0); ARTERIAL BLOOD GAS CARBOXY HB 0.8 %sat (0.0-9.0); ARTERIAL BLOOD GAS HCO3 20.7 mmol/L; ARTERIAL BLOOD GAS MET HB 1.2 %sat (0.0-2.0); ARTERIAL BLOOD GAS PCO2 30.1 mmHg (35.0-45.0); ARTERIAL BLOOD GAS PO2 97.9 mmHg (80.0-100); ARTERIAL BLOOD GAS pH 7.445 (7.350-7.450)
[2016-08-16 04:57] LABS: ARTERIAL BLOOD GAS ALLEN TEST NORMAL; ARTERIAL BLOOD GAS ART SITE LEFT RADIAL; ARTERIAL DRAW? YES
[2016-08-16 04:58] LABS: ARTERIAL BLOOD GAS DELIVERY HEATED HIGH FLOW
[2016-08-16 19:58] LABS: MAGNESIUM 2.2 mg/dL (1.6-3.0); POTASSIUM 3.2 mmol/L (3.5-5.1)
[2016-08-17 03:31] LABS: HEMATOCRIT 28.2 % (38.0-50.0); HEMOGLOBIN 9.2 gm/dL (13.0-16.0); LYMPHOCYTE# 0.5 X10e3 (1.0-3.5); LYMPHOCYTE% 9.7 % (17.0-45.0); MEAN CORPUSCULAR HEMOGLOBIN 29.2 PG (28-34); MEAN CORPUSCULAR HGB CONC 32.4 g/dL (30-36); MEAN PLATELET VOLUME 9.6 FL (6.5-11.5); MONOCYTE# 0.1 X10e3 (0-1.0); MONOCYTE% 2.5 % (3.0-12.0); NEUTROPHIL# 4.5 X10e3 (1.5-7.1); NEUTROPHIL% 87.8 % (40-75); PLATELET COUNT 177 X10e3 (140-420); RED BLOOD COUNT 3.14 X10e (3.90-5.60); RED CELL DISTRIBUTION WIDTH 13.7 % (11.0-15.5); WHITE BLOOD COUNT 5.1 X10e3 (4.0-10.5)
[2016-08-17 03:32] LABS: DIFF IND NO
[2016-08-17 03:51] LABS: CALCIUM SERUM 8.3 mg/dL (8.4-10.2); CREATININE SERUM 0.6 mg/dL (0.6-1.4); GLOM FILT RATE Estimated 100.5 mL/min (>60); MAGNESIUM 2.2 mg/dL (1.6-3.0); POTASSIUM 3.5 mmol/L (3.5-5.1)
[2016-08-18 03:36] LABS: HEMATOCRIT 27.9 % (38.0-50.0); HEMOGLOBIN 9.2 gm/dL (13.0-16.0); LYMPHOCYTE# 0.4 X10e3 (1.0-3.5); MEAN CELL VOLUME 89.4 FL (83-96); MEAN CORPUSCULAR HEMOGLOBIN 29.4 PG (28-34); MEAN CORPUSCULAR HGB CONC 32.9 g/dL (30-36); MEAN PLATELET VOLUME 9.3 FL (6.5-11.5); MONOCYTE# 0.1 X10e3 (0-1.0); MONOCYTE% 2.3 % (3.0-12.0); NEUTROPHIL# 4.6 X10e3 (1.5-7.1); NEUTROPHIL% 89.7 % (40-75); PLATELET COUNT 172 X10e3 (140-420); RED BLOOD COUNT 3.12 X10e (3.90-5.60); WHITE BLOOD COUNT 5.2 X10e3 (4.0-10.5)
[2016-08-18 03:37] LABS: DIFF IND YES
[2016-08-18 03:55] LABS: ALBUMIN SERUM 3.4 g/dL (3.5-5.0); BUN/CREATININE RATIO 46.66; CALCIUM SERUM 8.4 mg/dL (8.4-10.2); CREATININE SERUM 0.6 mg/dL (0.6-1.4); GLOM FILT RATE Estimated 100.5 mL/min (>60); MAGNESIUM 2.1 mg/dL (1.6-3.0); POTASSIUM 3.2 mmol/L (3.5-5.1)
[2016-08-18 04:00] LABS: PLATELET ESTIMATE DECREASED (NORMAL)
[2016-08-18 04:01] LABS: HYPOCHROMIA SL; STOMATOCYTE PRESENT
[2016-08-18 04:20] LABS: ARTERIAL BLD GAS O2 SATURATION 93.9 % (90.0-100.0); ARTERIAL BLOOD GAS CARBOXY HB 0.9 %sat (0.0-9.0); ARTERIAL BLOOD GAS HCO3 22.2 mmol/L; ARTERIAL BLOOD GAS MET HB 0.1 %sat (0.0-2.0); ARTERIAL BLOOD GAS PCO2 33.2 mmHg (35.0-45.0); ARTERIAL BLOOD GAS pH 7.433 (7.350-7.450)
[2016-08-18 04:38] LABS: ARTERIAL BLOOD GAS ALLEN TEST NORMAL; ARTERIAL BLOOD GAS ART SITE RIGHT RADIAL; ARTERIAL BLOOD GAS DELIVERY HEATED HIGH FLOW; ARTERIAL BLOOD GAS PO2 64.9 mmHg (80.0-100); ARTERIAL DRAW? YES
[2016-08-19 04:25] LABS: ARTERIAL BLD GAS O2 SATURATION 95.2 % (90.0-100.0); ARTERIAL BLOOD GAS CARBOXY HB 0.8 %sat (0.0-9.0); ARTERIAL BLOOD GAS HCO3 24.9 mmol/L; ARTERIAL BLOOD GAS MET HB 0.7 %sat (0.0-2.0); ARTERIAL BLOOD GAS PCO2 38.6 mmHg (35.0-45.0); ARTERIAL BLOOD GAS pH 7.418 (7.350-7.450)
[2016-08-19 04:37] LABS: ARTERIAL BLOOD GAS ALLEN TEST NORMAL; ARTERIAL BLOOD GAS ART SITE LEFT RADIAL; ARTERIAL BLOOD GAS PO2 76.8 mmHg (80.0-100); ARTERIAL DRAW? YES
[2016-08-19 04:38] LABS: ARTERIAL BLOOD GAS DELIVERY OPTIFLOW
[2016-08-19 05:12] LABS: HEMATOCRIT 28.6 % (38.0-50.0); HEMOGLOBIN 9.4 gm/dL (13.0-16.0); MEAN CORPUSCULAR HEMOGLOBIN 29.6 PG (28-34); MEAN CORPUSCULAR HGB CONC 32.9 g/dL (30-36); MEAN PLATELET VOLUME 9.8 FL (6.5-11.5); RED BLOOD COUNT 3.18 X10e (3.90-5.60); WHITE BLOOD COUNT 6.1 X10e3 (4.0-10.5)
[2016-08-19 06:09] LABS: ALBUMIN SERUM 3.4 g/dL (3.5-5.0); BILIRUBIN,TOTAL 0.6 mg/dL (0.2-2.0); BUN/CREATININE RATIO 41.42; CALCIUM SERUM 8.3 mg/dL (8.4-10.2); CREATININE SERUM 0.7 mg/dL (0.6-1.4); GLOM FILT RATE Estimated 94.3 mL/min (>60); MAGNESIUM 2.1 mg/dL (1.6-3.0); PROTEIN TOTAL SERUM 6.4 g/dL (6.0-8.3)
[2016-08-20 04:24] LABS: ARTERIAL BLD GAS O2 SATURATION 96.6 % (90.0-100.0); ARTERIAL BLOOD GAS HCO3 24.6 mmol/L; ARTERIAL BLOOD GAS MET HB 0.7 %sat (0.0-2.0); ARTERIAL BLOOD GAS PCO2 38.2 mmHg (35.0-45.0); ARTERIAL BLOOD GAS PO2 91.5 mmHg (80.0-100); ARTERIAL BLOOD GAS pH 7.418 (7.350-7.450)
[2016-08-20 04:45] LABS: ARTERIAL BLOOD GAS ALLEN TEST NORMAL; ARTERIAL BLOOD GAS ART SITE LEFT RADIAL; ARTERIAL DRAW? YES
[2016-08-20 04:46] LABS: ARTERIAL BLOOD GAS DELIVERY OPTIFLOW
[2016-08-20 05:33] LABS: BASOPHIL% 0.1 % (0-2.5); HEMATOCRIT 28.2 % (38.0-50.0); HEMOGLOBIN 9.3 gm/dL (13.0-16.0); LYMPHOCYTE# 0.3 X10e3 (1.0-3.5); LYMPHOCYTE% 4.6 % (17.0-45.0); MEAN CELL VOLUME 89.9 FL (83-96); MEAN CORPUSCULAR HEMOGLOBIN 29.6 PG (28-34); MEAN CORPUSCULAR HGB CONC 32.9 g/dL (30-36); MEAN PLATELET VOLUME 9.6 FL (6.5-11.5); MONOCYTE# 0.2 X10e3 (0-1.0); NEUTROPHIL# 6.9 X10e3 (1.5-7.1); NEUTROPHIL% 92.3 % (40-75); PLATELET COUNT 194 X10e3 (140-420); RED BLOOD COUNT 3.14 X10e (3.90-5.60); RED CELL DISTRIBUTION WIDTH 14.1 % (11.0-15.5); WHITE BLOOD COUNT 7.4 X10e3 (4.0-10.5)
[2016-08-20 05:36] LABS: DIFF IND NO
[2016-08-20 06:52] LABS: ALBUMIN SERUM 3.2 g/dL (3.5-5.0); CALCIUM SERUM 8.5 mg/dL (8.4-10.2); CREATININE SERUM 0.5 mg/dL (0.6-1.4); GLOM FILT RATE Estimated 108.3 mL/min (>60); MAGNESIUM 2.2 mg/dL (1.6-3.0); POTASSIUM 3.6 mmol/L (3.5-5.1); PROTEIN TOTAL SERUM 5.9 g/dL (6.0-8.3)
[2016-08-21 06:10] LABS: BASOPHIL% 0.1 % (0-2.5); HEMATOCRIT 27.9 % (38.0-50.0); HEMOGLOBIN 9.3 gm/dL (13.0-16.0); LYMPHOCYTE# 0.3 X10e3 (1.0-3.5); LYMPHOCYTE% 3.8 % (17.0-45.0); MEAN CELL VOLUME 89.5 FL (83-96); MEAN CORPUSCULAR HEMOGLOBIN 29.7 PG (28-34); MEAN CORPUSCULAR HGB CONC 33.2 g/dL (30-36); MEAN PLATELET VOLUME 9.8 FL (6.5-11.5); MONOCYTE# 0.2 X10e3 (0-1.0); MONOCYTE% 3.1 % (3.0-12.0); NEUTROPHIL# 7.4 X10e3 (1.5-7.1); PLATELET COUNT 188 X10e3 (140-420); RED BLOOD COUNT 3.12 X10e (3.90-5.60); RED CELL DISTRIBUTION WIDTH 14.1 % (11.0-15.5)
[2016-08-21 06:19] LABS: DIFF IND YES
[2016-08-21 06:59] LABS: CALCIUM SERUM 8.5 mg/dL (8.4-10.2); CREATININE SERUM 0.4 mg/dL (0.6-1.4); GLOM FILT RATE Estimated 118.7 mL/min (>60); POTASSIUM 3.5 mmol/L (3.5-5.1)
[2016-08-21 07:19] LABS: PLATELET ESTIMATE NORMAL (NORMAL)
[2016-08-22 05:38] LABS: HEMOGLOBIN 10.6 gm/dL (13.0-16.0); MEAN CELL VOLUME 90.7 FL (83-96); MEAN CORPUSCULAR HEMOGLOBIN 29.3 PG (28-34); MEAN CORPUSCULAR HGB CONC 32.3 g/dL (30-36); RED BLOOD COUNT 3.64 X10e (3.90-5.60); RED CELL DISTRIBUTION WIDTH 14.2 % (11.0-15.5)
[2016-08-22 05:40] LABS: WHITE BLOOD COUNT 17.5 X10e3 (4.0-10.5)
[2016-08-22 06:29] LABS: BUN/CREATININE RATIO 44.28; CALCIUM SERUM 8.8 mg/dL (8.4-10.2); CREATININE SERUM 0.7 mg/dL (0.6-1.4); GLOM FILT RATE Estimated 94.3 mL/min (>60); POTASSIUM 3.7 mmol/L (3.5-5.1)
[2016-08-23 05:40] LABS: HEMATOCRIT 33.9 % (38.0-50.0); HEMOGLOBIN 10.9 gm/dL (13.0-16.0); MEAN CELL VOLUME 90.3 FL (83-96); MEAN CORPUSCULAR HGB CONC 32.1 g/dL (30-36); RED BLOOD COUNT 3.76 X10e (3.90-5.60); RED CELL DISTRIBUTION WIDTH 14.7 % (11.0-15.5); WHITE BLOOD COUNT 22.2 X10e3 (4.0-10.5)
[2016-08-23 06:17] LABS: BUN/CREATININE RATIO 31.05; CALCIUM SERUM 8.9 mg/dL (8.4-10.2); CREATININE SERUM 1.9 mg/dL (0.6-1.4); GLOM FILT RATE Estimated 34.5 mL/min (>60); POTASSIUM 4.7 mmol/L (3.5-5.1)
[2016-08-23 17:01] LABS: BUN/CREATININE RATIO 31.5; CALCIUM SERUM 8.3 mg/dL (8.4-10.2); GLOM FILT RATE Estimated 32.4 mL/min (>60)
[2016-08-23 17:05] LABS: POTASSIUM 5.6 mmol/L (3.5-5.1)
[2016-08-23 18:41] LABS: URINE APPEARANCE CLOUDY; URINE BILIRUBIN NEG (NEG); URINE BLOOD 3+ (NEG); URINE COLOR ORANGE; URINE GLUCOSE NEG (NEG); URINE KETONE NEG (NEG); URINE LEUKOCYTE ESTERASE 1+ (NEG); URINE NITRATE NEG (NEG); URINE PROTEIN 3+ (NEG); URINE SPECIFIC GRAVITY 1.015 (1.003-1.035); URINE UROBILINOGEN 0.2 MG/DL (NEG)
[2016-08-23 18:45] LABS: URBCS1 AUWI INNUM /[HPF] (0-2); URINE BACTERIA AUWI NEG (NEGATIVE); URINE SQUAMOUS EPITHELIAL CELL MOD /[HPF]; UWBCS1 AUWI 25-50 (0-5)
[2016-08-23 18:57] LABS: URINE YEAST PRESENT
[2016-08-24 04:27] LABS: HEMATOCRIT 27.9 % (38.0-50.0); HEMOGLOBIN 9.1 gm/dL (13.0-16.0); MEAN CELL VOLUME 91.3 FL (83-96); MEAN CORPUSCULAR HEMOGLOBIN 29.7 PG (28-34); MEAN CORPUSCULAR HGB CONC 32.6 g/dL (30-36); MEAN PLATELET VOLUME 10.6 FL (6.5-11.5); RED BLOOD COUNT 3.06 X10e (3.90-5.60); RED CELL DISTRIBUTION WIDTH 14.7 % (11.0-15.5); WHITE BLOOD COUNT 12.7 X10e3 (4.0-10.5)
[2016-08-24 04:54] LABS: BUN/CREATININE RATIO 39.33; CALCIUM SERUM 8.1 mg/dL (8.4-10.2); CREATININE SERUM 1.5 mg/dL (0.6-1.4); GLOM FILT RATE Estimated 45.9 mL/min (>60); MAGNESIUM 2.3 mg/dL (1.6-3.0)
[2016-08-25 06:47] LABS: HEMATOCRIT 26.3 % (38.0-50.0); HEMOGLOBIN 8.5 gm/dL (13.0-16.0); MEAN CELL VOLUME 91.3 FL (83-96); MEAN CORPUSCULAR HEMOGLOBIN 29.3 PG (28-34); MEAN CORPUSCULAR HGB CONC 32.1 g/dL (30-36); MEAN PLATELET VOLUME 10.7 FL (6.5-11.5); RED BLOOD COUNT 2.88 X10e (3.90-5.60); RED CELL DISTRIBUTION WIDTH 14.7 % (11.0-15.5); WHITE BLOOD COUNT 11.8 X10e3 (4.0-10.5)
[2016-08-25 07:23] LABS: BUN/CREATININE RATIO 55.55; CREATININE SERUM 0.9 mg/dL (0.6-1.4); POTASSIUM 4.2 mmol/L (3.5-5.1)
[2016-08-26 07:04] LABS: HEMATOCRIT 27.5 % (38.0-50.0); HEMOGLOBIN 8.9 gm/dL (13.0-16.0); MEAN CELL VOLUME 91.3 FL (83-96); MEAN CORPUSCULAR HEMOGLOBIN 29.4 PG (28-34); MEAN CORPUSCULAR HGB CONC 32.2 g/dL (30-36); MEAN PLATELET VOLUME 10.4 FL (6.5-11.5); RED BLOOD COUNT 3.01 X10e (3.90-5.60); RED CELL DISTRIBUTION WIDTH 14.9 % (11.0-15.5); WHITE BLOOD COUNT 13.4 X10e3 (4.0-10.5)
[2016-08-26 07:46] LABS: BUN/CREATININE RATIO 51.42; CALCIUM SERUM 8.5 mg/dL (8.4-10.2); CREATININE SERUM 0.7 mg/dL (0.6-1.4); GLOM FILT RATE Estimated 94.3 mL/min (>60); POTASSIUM 3.7 mmol/L (3.5-5.1)
[2016-08-27 05:37] LABS: HEMATOCRIT 26.3 % (38.0-50.0); HEMOGLOBIN 8.5 gm/dL (13.0-16.0); MEAN CELL VOLUME 91.3 FL (83-96); MEAN CORPUSCULAR HEMOGLOBIN 29.5 PG (28-34); MEAN CORPUSCULAR HGB CONC 32.3 g/dL (30-36); MEAN PLATELET VOLUME 10.5 FL (6.5-11.5); RED BLOOD COUNT 2.88 X10e (3.90-5.60); WHITE BLOOD COUNT 14.9 X10e3 (4.0-10.5)
[2016-08-27 06:09] LABS: CALCIUM SERUM 8.6 mg/dL (8.4-10.2); CREATININE SERUM 0.5 mg/dL (0.6-1.4); GLOM FILT RATE Estimated 108.3 mL/min (>60); POTASSIUM 3.5 mmol/L (3.5-5.1)
[2016-08-29] MEDS ORDERED: IPRAT-ALBUT 0.5-3 ML NEB (16:45)
[2016-08-29] MEDS ORDERED: CYMBALTA30 M1 PO (16:45)
[2016-08-29] MEDS ORDERED: TYLENOL325 M1 PO (16:45)
[2016-08-29] MEDS ORDERED: SYMBICORT INH (16:45)
[2016-08-29] MEDS ORDERED: FLOMAX0.4 M1 PO (16:45)
[2016-08-29] MEDS ORDERED: ZOFRAN PO (16:46)
[2016-08-29] MEDS ORDERED: NORVASC PO (16:46)
[2016-08-29] MEDS ORDERED: HYDROCODON-ACE1 EAC7 PO (16:47)
[2016-08-29] MEDS ORDERED: PROTONIX40 M1 PO (16:47)
[2016-08-29] MEDS ORDERED: SODIUM CHLORIDE3 M1 NEB (16:48)
[2016-08-29] MEDS ORDERED: DIFLUCAN PO (16:48)
== END 2016-08-28 13:06 | DRG 291 ==
LOC: CED 17:44 → CEDOF 08-14 01:00 → CICCU2 08-14 01:00 → CED 08-14 01:03 → CEDOF 08-14 01:03 → CICCU2 08-14 03:42 → C5B 08-20 20:34
PROVIDERS: Emergency Medicine; Family Medicine; Internal Medicine; Nurse Practitioner Family
PROC: B32TYZZ Computerized Tomography (CT Scan) of Left Pulmonary Artery using Other Contrast (ICD-10-PCS; principal; 2016-08-14)
PROC: B32SYZZ Computerized Tomography (CT Scan) of Right Pulmonary Artery using Other Contrast (ICD-10-PCS; 2016-08-14)
PROC: 5A09457 Assistance with Respiratory Ventilation, 24-96 Consecutive Hours, Continuous Positive Airway Pressure (ICD-10-PCS; 2016-08-14)
PROC: B24BYZZ Ultrasonography of Heart with Aorta using Other Contrast (ICD-10-PCS; 2016-08-14)
PROC: 0DH63UZ Insertion of Feeding Device into Stomach, Percutaneous Approach (ICD-10-PCS; 2016-08-18 16:06)
DX: I50.43 Acute on chronic combined systolic (congestive) and diastolic (congestive) heart failure (principal); J96.21 Acute and chronic respiratory failure with hypoxia; J96.02 Acute respiratory failure with hypercapnia; E43 Unspecified severe protein-calorie malnutrition; G82.50 Quadriplegia, unspecified; N17.9 Acute kidney failure, unspecified; J18.9 Pneumonia, unspecified organism; R13.10 Dysphagia, unspecified; I27.2 Other secondary pulmonary hypertension; R00.1 Bradycardia, unspecified; I44.4 Left anterior fascicular block; J44.1 Chronic obstructive pulmonary disease with (acute) exacerbation; B37.49 Other urogenital candidiasis; J95.811 Postprocedural pneumothorax; M81.0 Age-related osteoporosis without current pathological fracture; E78.5 Hyperlipidemia, unspecified; I25.2 Old myocardial infarction; G89.29 Other chronic pain; Z87.891 Personal history of nicotine dependence; M62.3 Immobility syndrome (paraplegic); I25.10 Atherosclerotic heart disease of native coronary artery without angina pectoris; E66.9 Obesity, unspecified; R31.0 Gross hematuria; R33.9 Retention of urine, unspecified; K29.70 Gastritis, unspecified, without bleeding; E87.6 Hypokalemia; M40.209 Unspecified kyphosis, site unspecified; R19.7 Diarrhea, unspecified; Y83.8 Other surgical procedures as the cause of abnormal reaction of the patient, or of later complication, without mention of misadventure at the time of the procedure; Y82.8 Other medical devices associated with adverse incidents; Z68.25 Body mass index [BMI] 25.0-25.9, adult
CPT/HCPCS: 36415; 36600; 70450; 71010; 71250; 71275; 72131; 74000; 74176; 74230; 80048; 80053; 80076; 80202; 81003; 82140; 82150; 82308; 82550; 82553; 82803; 82947; 83605; 83690; 83735; 83880; 84100; 84132; 84443; 84484; 85025; 85027; 85610; 85730; 87040; 87086; 87493; 92526; 92610; 92611; 93005; 93306; 93970; 94640; 94660; 94760; 94761; 96365; 97110; 97163; 97167; 97535; 99291; C9113; G8978-GP; G8979-GP; G8987-GO; G8988-GO; G8996-GN; G8997-GN; G8998-GN; J0696; J1170; J1450; J1644; J1650; J1940; J2060; J2405; J2543; J2920; J2930; J3260; J3370; Q9967

== ENCOUNTER 2016-08-29 14:33 | Inpatient (IN) | payer MEDICARE ==
--- NOTE | ~2016-08-29 | CR4 ---
[facility] A Service of [facility] & [facility] RADIOLOGY TEXT RESULTS PATIENT: COSTA PRICE LOCATION: [facility] 339[address]01 : 43 UNIT #: [id number] AGE: [address]: Julienne Rowley MD SEX: M ORDER DR: [id number] [facility] [address] [facility]. [place], [place] [address] [id number] I MR#: [id number] Acc #: [id number] NAME: COSTA PRICE : 1945 SEX: M STUDY DATE/TIME: 09/02/2016 21:35 UNIT: [facility] ROOM: [facility] STUDY DESCRIPTION: CR Abdomen Flat Upright or Dec Attending Physician: Julienne Rowley M.D. Ordering Physician: Julienne Rowley M.D. Primary Care Physician: Eze Lubin M.D. MEDICAL IMAGING REPORT This report is preliminary unless electronic signature is present EXAM Abdomen 2 views dated 09/02/2016 COMPARISON Abdomen single view dated 08/23/2016. HISTORY Abdomen distension and pain for a few days. It started from 08/23/2016. Blood in urine. FINDINGS Frontal view of the abdomen was obtained. Colonic contrast is seen with multiple scattered contrast filled diverticula in the colon. There is nonspecific bowel gas pattern. Contrast is not seen to extend all the way to the rectum yet. No obvious discernible free intraperitoneal air under the diaphragm. Multilevel contiguous endplate osteophytes are noted in the thoracolumbar spine which could be related to diffuse idiopathic skeletal hyperostosis. Degenerative changes are also seen in the spine along with arthritic changes in bilateral hips. Air filled multiple bowel loops are noted in the abdomen limiting evaluation of underlying organs. Continued followup x-ray abdomen can be obtained to evaluate for extension of contrast all the way down to the rectum. Dictated by... Tello Munoz M.D. THIS IS AN ELECTRONICALLY VERIFIED REPORT Tello Munoz M.D. at 09/04/2016 5:10 PM CPR/cee TD: 09/03/2016 09:13 [facility] A Service of [facility] & [facility] RADIOLOGY TEXT RESULTS PATIENT: COSTA PRICE LOCATION: [address] 339[address]01 : 44 UNIT #: [id number] AGE: [address]: Julienne Rowley MD SEX: M ORDER DR: JOB #: [id number] MEDICAL IMAGING REPORT Page 1 of 1 COPY
--- NOTE | ~2016-08-29 | HP ---
Unit #: [id number] #: [id number] Patient: COSTA PRICE [id number] [place] [place], [place] [address] [id number] I MR#: [id number] NAME: COSTA PRICE ROOM: [address] Age: 71 Sex: M Admission Date: 08/29/2016 : 1945 Attending Physician: Julienne Rowley M.D. Primary Care Physician: Eze Lubin M.D. HISTORY AND PHYSICAL REVISED REPORT REASON FOR ADMISSION Acute hypoxic respiratory failure, multifocal pneumonia. HISTORY OF PRESENT ILLNESS The patient is a very pleasant 71-year-old male who was recently discharged from [facility] on August 28, 2016, secondary to respiratory failure after a very prolonged hospital course from respiratory failure, dysphagia, hematuria, and recent spinal infection, and was actually discharged to a rehab facility. While he was at the rehab facility, he developed increased work of breathing and was noted to have accessory muscle use and was acutely hypoxic and was transferred back to [facility] for further evaluation. While here, initial laboratory studies yielded a hemoglobin of 7.9. He was noted to be in the mid 80s on his O2 saturations, and thus decision has been made for admission. Initial chest x-ray, preliminary reading, shows findings concerning for multifocal pneumonia. PAST MEDICAL HISTORY 1. Recent hospital admission here secondary to acute hypoxic respiratory failure and healthcare-acquired pneumonia. 2. Chronic obstructive pulmonary disease. 3. Osteoporosis. 4. Myocardial infarction. 5. Hyperlipidemia. 6. Chronic pain syndrome. 7. Spinal surgery with recent postoperative infection. 8. Recent hospital admission secondary to sepsis. 9. Anemia. 10. Chronic deconditioning. 11. Recent yeast UTI. 12. Dysphagia, status post PEG tube placement. 13. Malnutrition, moderate to severe. 14. Prior history of left bundle branch block. 15. Prior history of systolic heart failure followed by Dr. Bernard. CURRENT HOME MEDICATIONS 1. Lopid. 2. Climax. 3. Xanax. 4. Vitamin C. 5. Senna. 6. Remeron. Unit #: [id number] #: [id number] Patient: COSTA PRICE 7. Lyrica. 8. Flomax. 9. Zinc. 10. Fosamax. 11. Ditropan. 12. MiraLax. 13. Bowel regime. 14. Heparin. 15. Morphine sulfate. 16. Niacin. 17. ProAir. 18. Omeprazole. 19. Symbicort. Please note, medications do not match up per se from previous Discharge Summary. Morphine was not on prior Discharge Summary but appears on current list. We are awaiting copies from [facility] for verification, but patient was discharged on Climax and not morphine per se. He was also discharged on Cymbalta which is not showing up on current list. ALLERGIES Lovenox. FAMILY HISTORY Reviewed and noncontributory or not pertinent. SOCIAL HISTORY No alcohol, no tobacco, and no illicit drug use. REVIEW OF SYSTEMS Please see History of Present Illness. Twelve points otherwise negative except for those positive and noted in the HPI. PHYSICAL EXAMINATION VITAL SIGNS: Temperature 97.5, pulse 99, respirations 15, and blood pressure 130/62. GENERAL APPEARANCE: Alert, oriented, and in no acute distress. HEAD: Atraumatic, normocephalic. Mucous membranes dry. NECK: Supple. CARDIOVASCULAR: S1 and S2 are audible without murmur. RESPIRATORY: Decreased air movement noted. Bilateral rhonchi. Increased work of breathing noted. GASTROINTESTINAL/ABDOMEN: Mild distention. Mildly tender to palpation throughout. NEUROLOGIC: Patient is awake, alert, and oriented x3. Very slow response to questions. Very flat affect. DIAGNOSTIC STUDIES INITIAL LABORATORY: Hemoglobin of 7.9 and white count 12.1. BNP 252. Potassium 3.3, creatinine 0.6, ALT mildly elevated at 58, and albumin 2.9. Lactic acid 1.6. INITIAL ADMISSION DIAGNOSES 1. Acute hypoxic respiratory failure. 2. Multifocal pneumonia. 3. Recent hospital admission for similar circumstance. 4. Recent spinal surgery with postoperative infection with completion of antibiotic course. Unit #: [id number] #: [id number] Patient: COSTA PRICE 5. Chronic immobility syndrome. 6. Chronic deconditioning. 7. Hematuria secondary to traumatic Dumont catheter insertion, as well as yeast urinary tract infection. 8. Underlying chronic obstructive pulmonary disease. 9. Underlying chronic respiratory failure on two to four liters of home oxygen. 10. Hypertension. 11. Chronic pain syndrome. 12. Chronic dysphagia, status post percutaneous endoscopic gastrostomy tube placement last hospital admission. 13. Moderate to severe malnutrition. 14. Anemia, baseline hemoglobin approximately 8. 15. Systolic heart failure. PLAN Admission to telemetry floor. Consultation to pulmonary services. Consultation to infectious disease services for antibiotic recommendation. Routine labs. Verify medication reconciliation. Replete potassium. Further disposition pending above evaluation. For now, initiation of healthcare-acquired pneumonia protocol without tobramycin in lieu of recent acute kidney injury. Other routine medications to remain as is for now. expresses concern that last three hospital admissions patient has been discharged to rehab facilities and has had to return within one to two days secondary to similar circumstance. We will discuss with outlying rehab facilities and/or care management about possible transition to alternative rehab and/or possible [facility] at time of discharge. Patient remains Full Code. Dictated by Andie Schrader/nina TD: 08/29/2016 20:04 JOB #: [id number] CC: Roberta/invision Please Delete HISTORY AND PHYSICAL Page 1 of 1 X Julienne Rowley MD X HISTORY AND PHYSICAL
--- NOTE | ~2016-08-29 | FU ---
[facility] Nutrition Therapy DATE: 09/01/16 Patient: COSTA PRICE Physician: CHERIE Address: [address] [place] [address] Room/Bed: [address] [place] [address], Zip: [place] [address] Admit Date: 08/29/16 Date of : 43 Height: 5 10 Weight: 174 79 NUTRITION MONITORING/FOLLOW-UP: Reason: CONSULT RE: ELEVATED NA+, ENTERAL NUTRITION SUPPORT Estimated Nutrition Needs: [id number] KCALS 84-109 G PRO Assessment: CHART REVIEWED, EVENTS NOTED. PT CONSULTED FOR ELEVATED NA+ LEVELS. PER CHART, H20 FLUSHES TO BE INCREASED TO 250 ML q 6 HOURS. PT RECEIVING ENTERAL NUTRITION SUPPORT OF JEVITY 1.5 @ 60 ML/HR. RD TO CONTINUE TO FOLLOW. Recommendations: 1. CONTINUE ENTERAL NUTRITION SUPPORT OF JEVITY 1.5 @ 60 ML/HR X 24 HOURS. 2. CONTINUE WITH FREE H20 FLUSHES ABOVE. RD WILL F/U 09/04/2016. Respectfully, MARISOL MONROE, BUS STARTER YNES SHAH MS, RD, LD Food and Nutritional Services [facility] cc: client file
--- NOTE | ~2016-08-29 | CO ---
Unit #: [id number] #: [id number] Patient: COSTA PRICE [id number] [facility] [address] [facility]. [place], [place] [address] [id number] I MR#: [id number] NAME: COSTA PRICE ROOM: 339 Age: 71 Sex: M Admission Date: 08/29/2016 : 1945 Attending Physician: Julienne Rowley M.D. Primary Care Physician: Eze Lubin M.D. Consultation Date: 08/30/2016 CONSULTATION REPORT REASON FOR CONSULTATION Shortness of air, pneumonia. HISTORY OF PRESENT ILLNESS This is a 71-year-old male who is well known to our service, as the patient was recently admitted at [facility]. Please refer to full consultation note from 08/14/2016, as this will be a summary of updated events. The patient was discharged to rehab facility for only a few days and returns with increasing shortness of breath. The patient was recently treated for aspiration pneumonia and healthcare associated pneumonia with antibiotic therapy and prior to that the patient had an e-coli spinal wound infection treated at [facility] [place] [facility]. In discussion with the patient, he denies any fever or chills. He continues to report some shortness of breath and occasional productive sputum. However, he has noted the appearance of his sputum. The patient continues to report some mild abdominal discomfort, some continued back pain without change, but no other complaints at this time. The patient was initiated on vancomycin, tobramycin and Zosyn and infectious disease was asked to evaluate for questionable relapse of aspiration pneumonia. While here the patient has not spiked any fever. His white blood cell count is mildly elevated, but he has also been receiving steroids. His chest film actually showed improvement in his multifocal pneumonia. PAST MEDICAL HISTORY Please refer to prior dictation. SOCIAL HISTORY Please refer to prior dictation. ALLERGIES Please refer to prior dictation. CURRENT MEDICATIONS Vancomycin, tobramycin and Zosyn. For further medications, please refer to the patient's MAR. REVIEW OF SYSTEMS Negative except for that previously mentioned in history of present illness. PHYSICAL EXAMINATION GENERAL: This is a no apparent distress male who is resting comfortably in the bed. VITALS: Temperature 98.5, pulse 87, blood pressure 128/71, respiratory Unit #: [id number] #: [id number] Patient: DEE,COSTA rate 18. HEENT: Pupils are equal. NECK: Supple. LUNGS: Clear to auscultation bilaterally, however, fairly diminished and shallow inspiration. HEART: S1 and S2. Regular rate and rhythm. ABDOMEN: Rounded, soft. There are positive bowel sounds. Significant tenderness over his bladder. EXTREMITIES: No clubbing, cyanosis or edema. SPINE: Healed spinal incision without any evidence of erythema, cellulitis or dehiscence. : He has a Dumont catheter drainage bag to bedside that has minimal urine in place. DIAGNOSTIC STUDIES IMAGING: Chest x-ray, please see full report for complete details. In summary, multifocal infiltrates improved since 08/20/2016. LABORATORY: BUN 28, creatinine 0.6, sodium 147, potassium 3.8, chloride 108, CO2 27, bilirubin 0.9, AST 25, ALT 55, alkaline phosphatase 123, lactic acid 1.6. Coagulation INR 1.2. White blood cell count 14.9 which is increased slightly from 12.1 on admission. Hemoglobin 7.7, hematocrit 23.7, platelets 221. Urinalysis was not done this admission. Blood cultures are currently pending. ASSESSMENT/PLAN This is a 71-year-old male known to our service with recent treatment for aspiration pneumonia and healthcare associated pneumonia, as well as treatment prior to that for e-coli spinal wound infection at [facility] [place] [facility]. The patient was at the rehab facility for only a few days and returned with shortness of breath. The patient, however, has not fever, no significant leukocytosis and he is noted to be on steroids. At this time chest film is actually improved and clinically the patient looks better than the last time I saw him. I am not sure if the patient actually has relapse of pneumonia and would like to check a serum procalcitonin level. Other possibilities of noninfectious etiology could include a PE and we will discuss with the admitting team. Would recommended to continue vancomycin and Zosyn at this time, but hold tobramycin due to its toxicity in the elderly population and no evidence of increasing or worsening pneumonia. The patient also has some abdominal distension and discomfort and has a recent history of Dumont catheter malposition. I have discussed with the nurse who is going to replace his Dumont catheter this day. Thank you for allowing us to participate in the care of this patient. Further recommendations to follow pending the patient's clinical course. Dictated by... Torri Garay A.P.R.N. SLS/gz TD: 08/30/2016 08:58 JOB #: [id number] Unit #: [id number] #: [id number] Patient: COSTA PRICE CONSULTATION REPORT Page 1 of 1 X X CONSULTATION REPORT
--- NOTE | ~2016-08-29 | CO ---
Unit #: [id number] #: [id number] Patient: COSTA PRICE [id number] [address] [place], [place] [address] [id number] MR#: [id number] NAME: COSTA PRICE ROOM: 339 Age: 71 Sex: M Admission Date: 08/29/2016 : 1945 Attending Physician: Julienne Rowley M.D. Primary Care Physician: Eze Lubin M.D. CONSULTATION REPORT REASON FOR CONSULTATION Hypernatremia. HISTORY OF PRESENT ILLNESS This 71-year-old white male with multiple chronic medical problems was admitted on 08/29/2016 for shortness of breath. It looks like he has been discharged on 08/28/2016 after a prolonged hospital stay here for respiratory failure, dysphagia, aspiration, and recent spinal infection. His course has included a G-tube placement for nutrition. He also has an indwelling Dumont and from his 's history, it sounds like he has urinary retention as this Dumont was placed on the last admission. The patient continues to have a congested cough in the concern is that he is aspirating. He was supposed to have a CT scan of the chest today, but he refused it because of discomfort and pain. He has had a PEG exchange this admission and EGD revealed a large gastric ulcer. The patient has become very weak during his prolonged hospitalization. He has not walked in many weeks. He has been receiving tube feeds and free water flushes. He has had some issue with questionable ileus and his tube feeds have been stopped from time to time. His sodiums have been very slowly increasing up to the present level of 151 today, for which we were consulted. PAST MEDICAL HISTORY 1. Recent hospital admission due to pneumonia and respiratory failure. 2. PEG placement because of dysphagia and aspiration. 3. COPD. 4. Decreased mobility. 5. Coronary artery disease. 6. Chronic pain syndrome. 7. History of spine surgery with postoperative infection. 8. Anemia. 9. Gastric ulcer disease. 10. Malnutrition. SOCIAL HISTORY He is . His is present and supportive today. REVIEW OF SYSTEMS He is tired and limited in his responses, but says he is not having chest pain or shortness of breath. He is having cough, chronic back pain, and chronic nausea. No fever or chills. No urinary symptoms. He has indwelling Dumont. Other 13 systems reviewed unless noted are negative. CURRENT MEDICINES 1. Lyrica. Unit #: [id number] #: [id number] Patient: COSTA PRICE 2. Cymbalta. 3. Insulin. 4. Solu-Medrol. 5. Flomax. 6. Norvasc. 7. Protonix. 8. Hydrocodone. 9. Zosyn. 10. Reglan. PHYSICAL EXAMINATION VITAL SIGNS: Temperature 98, heart rate 94, blood pressure 142/73. Input and output are 1140 mL in and 1200 mL out. GENERAL: This is a very weak appearing white male, in no acute distress. He is looking at me and alert. He is very fatigued appearing and he is pale. HEENT: Extraocular muscles are intact. No eye drainage or icterus. Oropharynx is dry. NECK: Supple without JVD, thyromegaly, or carotid bruit. CHEST: Shows bilateral rhonchi on auscultation. CARDIAC: S1 and S2. Normal sinus rhythm. No gallop or rub. ABDOMEN: Soft, nontender, nondistended. Positive bowel sounds. He has a PEG in place that is clean, dry, and intact. He also has a Dumont catheter anchored in place. EXTREMITIES: Show no cyanosis, clubbing, or edema. He has noted lower extremity muscle atrophy. LABORATORY DATA Show a glucose of 119, BUN of 33, creatinine 0.5, sodium 151, potassium 3.8, chloride 107, bicarbonate 32, albumin is 3. Sodium yesterday 149, admission sodium 143. ASSESSMENT Hypernatremia likely due to volume depletion. His calculated water deficit is around 2 L. He is currently getting about 1200 mL a day of free water and his tube feeds have been turned off the past 12 hours due to concern for ileus. The patient's renal function is stable; however, he is getting a bit of a contraction alkalosis. PLAN The plan will be to give him IV half-normal saline at 100 mL an hour for 500 mL and then D5 water at 100 mL an hour for 500 mL. His free water flushes will be increased to 300 mL q.4 hours. His sodiums will be followed serially. Thank you very much for allowing me to see Mr. Price in consultation. We will follow closely with you. Dictated by... Andie Vazquez/red TD: 09/04/2016 13:40 JOB #: [id number] Unit #: [id number] #: [id number] Patient: DEECOSTA CONSULTATION REPORT Page 1 of 1 X Bouchra Galdamez MD X CONSULTATION REPORT
--- NOTE | ~2016-08-29 | CO ---
Unit #: [id number] #: [id number] Patient: COSTA PRICE [id number] [facility]. [place], [place] [address] [id number] I MR#: [id number] NAME: COSTA PRICE ROOM: 339 Age: 71 Sex: M Admission Date: 08/29/2016 : 1945 Attending Physician: Julienne Rowley M.D. Primary Care Physician: Eze Lubin M.D. Consultation Date: 08/31/2016 CONSULTATION REPORT REASON FOR CONSULTATION Anemia with hemoglobin of 7.4 with a baseline hemoglobin of 13.6. HISTORY Most of the history was obtained from the patient's , who is at the bedside. The patient is a very pleasant 71-year-old white gentleman who is mostly responding in monosyllables. Again, most of the history was obtained from his . He, in fact, was admitted with multifocal pneumonia and acute hypoxic respiratory failure. During his evaluation, his hemoglobin has dropped from 11 to 7.4 without any history of overt GI bleed. According to the , the patient also had urinary retention and underwent urinary catheterization and, since then, has been having significant hematuria, which has continued since after admission. The is present at the bedside. There is no history of any abdominal pain. The patient denies any history of overt GI bleed in the form of hematemesis, melena or hematochezia. PAST MEDICAL HISTORY His past medical history is significant for history of recent hospitalization due to healthcare-acquired pneumonia and acute hypoxic respiratory failure. He also has a history of COPD, osteoporosis, myocardial infarction, hyperlipidemia, chronic pain syndrome, chronic deconditioning and poor mobility, recent hospital admission secondary to sepsis, history of dysphagia status post PEG tube placement and malnutrition, which is severe. He has previous history of systolic heart failure, followed by Dr. Bernard. MEDICATIONS His medications at home included the following: Remeron, omeprazole, Symbicort, ProAir, niacin, morphine sulfate, heparin, MiraLAX, Ditropan, Fosamax, zinc, Flomax, Lyrica, vitamin C, Senna, Xanax and Lopid. ALLERGIES Lovenox, which causes anxiety. FAMILY HISTORY None of colon or pancreatic cancer or liver disease. SOCIAL HISTORY The patient does not smoke, drink alcohol. He used to smoke in the past and quit smoking about 30 years ago. PHYSICAL EXAMINATION GENERAL: On examination, he is awake and alert but talking very little. Unit #: [id number] #: [id number] Patient: COSTA PRICE His is (1) most of the symptoms. VITAL SIGNS: His vital signs indicate a temperature of 98.6, pulse 98 per minute and regular, respiratory rate 18, blood pressure is 133/72. He weighs 173 pounds, which is close to his baseline weight. GENERAL: He has moderate pallor with hemoglobin of 7.4, there being no lymphadenopathy or peripheral edema. CARDIOVASCULAR: Examination shows normal heart sounds. No murmurs on auscultation. RESPIRATORY: The lungs reveal normal breath sounds, good air entry. ABDOMEN: The abdomen is soft and nontender. The liver and spleen are not palpable. Bowel sounds are normal. DIAGNOSTIC STUDIES LABORATORY: Lab evaluation reveals hemoglobin of 7.4, white count is 13.6. BUN and creatinine are 31 and 4.6. CLINICAL IMPRESSION Patient most likely has anemia of chronic disease on a background of multifocal pneumonia and acute respiratory failure. The anemia may also be contributed by hematuria. The patient is certainly not a surgical candidate under the current circumstances. MANAGEMENT PLAN 1. Suggest stool studies for occult blood. 2. Obtain serum iron TIBC, ferritin, B12 and folate levels. 3. Repeat CBC and CMP in the morning. 4. Keep the patient after NPO after 4 a.m. tomorrow in case any GI evaluation is planned based upon the above studies ordered today, especially if there is Hemoccult positive stool. A Hemoccult positive stool study might be reasonable to proceed with an upper endoscopy. The patient is too unwell and sick to undergo colonoscopy under the present circumstances. Thank you very much for asking me to see this pleasant gentleman. I appreciate the consult. Dictated by.Andie Durbin TD: 09/01/2016 07:37 JOB #: [id number] CONSULTATION REPORT Page 1 of 1 X Lennox Luo MD X CONSULTATION REPORT
--- NOTE | ~2016-08-29 | DS ---
Unit #: [id number] #: [id number] Patient: COSTA PRICE [id number] [address] [place], [place] [address] [id number] I MR#: [id number] NAME: COSTA PRICE ROOM: 339 Age: 71 Sex: M Admission Date: 08/29/2016 : 1945 Discharge Date: 09/04/2016 Attending Physician: Julienne Rowley M.D. Primary Care Physician: Eze Lubin M.D. DISCHARGE SUMMARY REASON FOR ADMISSION 1. Acute hypoxic respiratory failure. 2. Possible multifocal pneumonia. HISTORY OF PRESENT ILLNESS/HOSPITAL COURSE The patient is a very pleasant 71-year-old male recently discharged from our hospital on 08/28/2016 secondary to similar circumstance, including respiratory failure, presumed pneumonia as well as bacteremia. Over the past several weeks he had been admitted to [facility] for spinal surgery with postoperative complications, including abscess formation. He was transitioned to a rehab facility. Unfortunately on two separate occasions he began to develop respiratory failure and was transitioned back to the hospital. He was recently admitted to our hospital in the early part of August and was actually discharged back to the rehab facility and represented on 08/29/2016 for once again respiratory failure. Initial laboratory studies showed decreased hemoglobin of 7.9 with an O2 saturation in the mid 80s on 3-4 liters of O2 via nasal cannula. Rehab facility became concerned and subsequently the patient was transitioned back to our particular hospital for further evaluation. While here, initial chest x-ray showed findings consistent with multifocal pneumonia. In regard to respiratory status, consultation was placed to both Dr. Morales of pulmonary service along with infectious disease service. Infectious disease services stated that the patient had been on antibiotics for almost two months, as well as his O2 saturations remained at baseline in the mid 90s on 3 liters. It seemed unlikely that he had acute infectious etiology. His antibiotics were gradually de-escalated and then later discontinued altogether. Dr. Morales stated that it would be ideal for the patient to have a CT of the chest PE protocol versus a VQ scan. However secondary to spinal surgery history the patient was unable to lie flat and, therefore, could not tolerate either procedure. At this point in time, clinical suspicion is low for acute pulmonary embolism, but from a respiratory standpoint he seems stable. In regard to the patient's decreased hemoglobin, it did decrease to at one Unit #: [id number] #: [id number] Patient: COSTA PRICE point 7.4 and, therefore, consultation was placed to Dr. Luo of gastroenterology services. The patient underwent upper GI endoscopy, which did reveal ulcer present in the body of the stomach. He was placed on PPI therapy. PEG tube was reevaluated and seemed to be working. He did have elements of increased sodium. At one point it peaked at 151. Therefore, this prompted consultation to Dr. Medley and associates from a nephrology standpoint. They did increase his free water to 300 cc q.4 h. This has decreased his sodium level today at the time of discharge to 149. Postoperatively and after his EGD, he did have some mild stomach pain and/or discomfort. He underwent, on two separate occasions, portable KUB which raised the possibility of some mild air fluid levels as well as diverticulosis. It was unclear if the patient had partial obstruction or ileus given the distention that was noted in the bowel loops. However, on exam the patient does have some mild distension, but is only mildly tender and he is having bowel movements as well. His latest one was within the past 24 hours. At this point in time, since the patient is unable to tolerate CAT scan of the abdomen and pelvis secondary to increased back pain and/or discomfort, for now we will follow. Secondary to associated comorbid conditions, prolonged hospital courses, the patient will be transitioned to rehab at the time of discharge. We have asked [facility] to reevaluate and the patient will be transitioned to [facility] later this afternoon. At the time of discharge and while at [facility] undergoing rehab secondary to spinal surgery as well as other deconditioning issues, medicine consult is recommended to follow along in regard to hypernatremia as well as ileus issues. FINAL DISCHARGE DIAGNOSES 1. Tgkrw-ap-koqomkr respiratory failure with baseline O2 between 3-4 liters. 2. Recent hospital admission secondary to healthcare acquired pneumonia with completed antibiotic regimen. 3. Spinal surgery with postoperative abscess formation treated with antibiotic regimen and now healing. 4. Chronic immobility syndrome. 5. Chronic deconditioning. 6. Possible colonic ileus, likely secondary to chronic immobility, chronic pain medication use. 7. Hematuria previously, now resolving. 8. Recent yeast urinary tract infection, now treated. 9. Underlying chronic obstructive pulmonary disease with O2 at approximately 3-4 liters. 10. History of hypertension. 11. Hypernatremia, now improving. 12. Chronic dysphagia, status post PEG tube placement. 13. Chronic pain syndrome. 14. Moderate to severe malnutrition. 15. Anemia. Baseline hemoglobin approximately 8-9. 16. Prior history of systolic heart failure, followed by Dr. Bernard. Ejection fraction approximately 40%. DISCHARGE DISPOSITION Rehab for ongoing care. Medicine consult is recommended while there. Unit #: [id number] #: [id number] Patient: COSTA PRICE DISCHARGE MEDICATIONS 1. Symbicort 160/4.5 two puffs b.i.d. 2. Duo-Neb aerosol solution q.6 h. scheduled. 3. Prednisone 20 mg p.o. daily times 7 days. 4. Flomax 0.4 mg daily. 5. Tylenol 650 mg q.6 h. p.r.n. 6. Lyrica 50 mg per PEG t.i.d. 7. Cymbalta 60 mg per PEG daily. 8. Zofran 4 mg per PEG q.6 h. p.r.n. 9. Norvasc 5 mg daily. 10. [place] 5/325 mg 1 tablet per PEG q.4 h. p.r.n. 11. Protonix 40 mg per PEG b.i.d. DISCHARGE CONDITION Stable. DISPOSITION [facility] for ongoing care. Dictated by... Andie Schrader/argentina TD: 09/04/2016 11:02 JOB #: [id number] DISCHARGE SUMMARY Page 1 of 1 X Julienne Rowley MD X DISCHARGE SUMMARY
--- NOTE | ~2016-08-29 | CR72 ---
[facility] A Service of [facility] & [facility] RADIOLOGY TEXT RESULTS PATIENT: COSTA PRICE LOCATION: [facility] 339-01 : 44 UNIT #: [id number] AGE: [address]: Julienne Rowley MD SEX: M ORDER DR: [id number] [facility] [address] [facility]. [place], [place] [address] [id number] I MR#: [id number] Acc #: [id number] NAME: COSTA PRICE : 1945 SEX: M STUDY DATE/TIME: 08/29/2016 15:37 [facility] ROOM: [facility] STUDY DESCRIPTION: CR Chest Single View Portable Attending Physician: Julienne Rowley M.D. Ordering Physician: Deejay Hughes M.D. Primary Care Physician: Eze Lubin M.D. MEDICAL IMAGING REPORT This report is preliminary unless electronic signature is present EXAM Portable chest. INDICATIONS Shortness breath, chest pain, cough and congestion for 1 week. COMPARISON Comparison made to a prior exam from 08/20/2016. FINDINGS Cardiomegaly is identified without evidence of vascular congestion. Patient is noted to have multifocal infiltrates, which I think actually appear improved when compared to August 20, 2016. Continued followup until complete resolution is recommended. No pneumothorax is identified. No definite pleural effusion is seen. Dictated by... Zuri Zhu M.D. THIS IS AN ELECTRONICALLY VERIFIED REPORT Zuri Zhu M.D. at 08/31/2016 3:41 PM AFF/cs TD: 08/29/2016 21:50 JOB #: [id number] MEDICAL IMAGING REPORT Page 1 of 1 COPY
--- NOTE | ~2016-08-29 | EKG ---
PATIENT: COSTA PRICE UNIT #: [id number] Ventricular Rate: 96 BPM Atrial Rate: 96 BPM P-R Interval: 182 ms QRS Duration: 142 ms Q-T Interval: 396 ms QTC Calculation(Bezet): 500 ms P Fr[place]: 60 degrees Calculated R Fr[place]: -23 degrees Calculated T Fr[place]: 103 degrees Diagnosis Line: Normal sinus rhythm Diagnosis Line: Left bundle branch block Diagnosis Line: Abnormal ECG Diagnosis Line: When compared with ECG of 13-AUG-2016 18:25, Diagnosis Line: T wave inversion now evident in Lateral leads Diagnosis Line: Confirmed by JARROD BURTON MD ([id number]) on Diagnosis Line: 08/29/2016 10:22:10 PM INTERPRETING MD: AKIRA
--- NOTE | ~2016-08-29 | A ---
[facility] [place] Nutrition Therapy DATE: 08/30/16 Patient: COSTA PRICE Physician: CHERIE Address: [address] [place] [address] Room/Bed: [address] [place] [address], Zip: [place] [address] Admit Date: 08/29/16 Date of : 43 Height: 5 10 Weight: 191 87 NUTRITIONAL ASSESSMENT: REASON: 1PT, CONSULT RE: TUBEFEEDS DX: 71 Y.O. MALE ADMITTED FOR SOA, RESPIRATORY FAILURE PMH: RESPIRATORY FAILURE, DYSPHAGIA, COPD, HEMATURIA, OSTEOPOROSIS, SPINAL INFECTION, HYPERLIPIDEMIA, ANEMIA Anthropometrics: 5'10", WT: 185# (84 KG), BMI 26 Labs: NA+ 147, GLU 147, BUN 28, ALB 2.6, ALT 55 Meds: FLOMAX, BMP, NACL, PROTONIX, HYDROCODONE, ZOFRAN, SOLU-MEDROL, ZOSYN, NORVASC I/O & Bowel function: 240/500, BM 6/5 Skin Integrity: REDNESS COCCYX, SURGICAL INCISION LUMBAR, ABRASIAN RT. KNEE, BRUISE HANDS Estimated Nutrition Needs: [id number] (22-26 KCAL/KG) 84-109.2 G PRO (1.0-1.3 G/KG) FLUID NEEDS CONSISTENT WITH KCALS Assessment: CHART REVIEWED, EVENTS NOTED. RD CONSULT RE: TUBEFEEDS. RD PREVIOUSLY ASSESSED PT ON 08/22 AND F/U ON 08/25 DURING PREVIOUS ADMIT. PER PT FAMILY, PT WAS D/C FROM [facility] AND ADMITTED TO [facility] FOR "HALF A DAY" BEFORE RETURNING TO [facility] 2' TO RESPIRATORY FAILURE, AND DID NOT RECEIVE ANY NUTRITION DURING THIS TIME. PT'S FAMILY REPORTS SOME PREVIOUS WEIGHT LOSS OF AN UNKNOWN AMOUNT, NOTING FAT/MUSCLE LOSS IN THE PT'S LEGS. PT AND FAMILY REPORT THEY ARE UNSURE IF PT CAN TOLERATE PO INTAKE. PT'S PMH INDICATED DYSPHAGIA, BUT PRECISION LATHE OPERATOR CONSULT IS NEEDED TO CONFIRM. PT HAS PEG TUBE. PLEASE SEE RECOMMENDATIONS BELOW FOR ENTERAL NUTRITION. Dx: INADEQUATE ORAL INTAKE R/T CURRENT CLINICAL CONDITION, PMH, DYSPHAGIA AEB NPO STATUS, PEG IN PLACE Intervention: 1. NPO 2. ENTERAL NUTRITION Monitoring, Evaluation and Goals: 1. ENTERAL NUTRITION SUPPORT; INITIATE ENTERAL NUTRITION SUPPORT, PROVIDE >80% OF GOAL VOLUME X 24 HOURS 2. WEIGHT; MAINTAIN WEIGHT, PREVENT UNINTENTIONAL WEIGHT LOSS 3. LABS; WNL [facility] Nutrition [facility] DATE: 08/30/16 Patient: COSTA WESTYER Physician: CHERIE Address: [address] [place] [address] Room/Bed: [address] [place] [address], Zip: [place] [address] Admit Date: 08/29/16 Date of : 43 Height: 5 10 Weight: 191 87 4. GI; PROMOTE REGULAR GI FUNCTION Recommendations: 1. INITIATE ENTERAL NUTRITION SUPPORT WITH JEVITY 1.5 @ 20 ML/HR AND ADVANCE 10 ML/HOUR Q 4 HOURS TO GOAL RATE OF 60 ML/HR X 24 HOURS. -THIS WILL PROVIDE 2160 KCAL, 91.8 G PRO, 1094 ML FREE H20 -FREE H20 FLUSHES PER MD ORDERS 2. MONITOR FOR SIGNS OF ENTERAL NUTRITION SUPPORT INTOLERANCE 3. CONSULT PRECISION LATHE OPERATOR FOR SAFE SWALLOW RD WILL F/U PER PROTOCOL PT IS AT MILD/MODERATE NUTRITIONAL RISK Respectfully, MARISOL MONROE RD, LD YNES SHAH MS, RD, LD [facility] cc: client file
--- NOTE | ~2016-08-29 | CT57 ---
[facility] A Service of [facility] & [facility] RADIOLOGY TEXT RESULTS PATIENT: COSTA PRICE LOCATION: [facility] 339-01 : 44 UNIT #: [id number] AGE: [address]: Julienne Rowley MD SEX: M ORDER DR: [id number] [facility] [address] [place], [place] [address] [id number] I MR#: [id number] Acc #: [id number] NAME: COSTA PRICE : 1945 SEX: M STUDY DATE/TIME: 08/30/2016 19:50 UNIT: A U ROOM: [facility] STUDY DESCRIPTION: CT Chest Wo Cont Attending Physician: Julienne Rowley M.D. Ordering Physician: Julienne Rowley M.D. Primary Care Physician: Eze Lubin M.D. MEDICAL IMAGING REPORT This report is preliminary unless electronic signature is present EXAM CT chest without contrast. HISTORY Shortness of air for 1 week. COPD. TECHNIQUE This CT exam was performed with one or more of the following radiation dose reduction techniques: automatic exposure control, adjustment of mA and/or kV according to patient size, and iterative reconstruction. FINDINGS CT chest without contrast demonstrates moderately extensive chronic atelectasis in the medial and posterior lower lobes bilaterally, unchanged compared to CT 08/14/16. Stable, very mild subsegmental atelectasis in the posterior lingula. Mild patchy subsegmental infiltrates or atelectasis in the right upper lobe, new since the prior CT. Moderate bilateral emphysema, greater in the upper lungs. Stable, mildly enlarged aortopulmonic window lymph node measuring 1.2 cm. Small gallstones. Percutaneous gastrostomy tube extends into the stomach in the mid gastric body. Partly visualized cyst in the upper pole of the right kidney. IMPRESSION 1. Stable moderately extensive atelectasis in the posteromedial lower lobes bilaterally and stable mild subsegmental atelectasis in the inferior lingula. 2. New mild patchy subsegmental atelectasis or infiltrate in the superior right upper lobe. 3. No pleural effusions. 4. Stable mildly enlarged single AP window lymph node. 5. Bilateral emphysema greater in the upper lobes. [facility] A Service of [facility] & [facility] RADIOLOGY TEXT RESULTS PATIENT: COSTA PRIEC LOCATION: [facility] 339-01 : 44 UNIT #: [id number] AGE: [address]: Julienne Rowley MD SEX: M ORDER DR: Dictated by... Rohit Adames M.D. THIS IS AN ELECTRONICALLY VERIFIED REPORT Rohit Adames M.D. at 08/31/2016 3:18 PM EARNEST/ladi TD: 08/30/2016 23:02 JOB #: [id number] MEDICAL IMAGING REPORT Page 1 of 1 COPY
--- NOTE | ~2016-08-29 | CR7 ---
[facility] A Service of [facility] & [facility] RADIOLOGY TEXT RESULTS PATIENT: COSTA PRICE LOCATION: [facility] 339-01 : 44 UNIT #: [id number] AGE: [address]: Julienne Rowley MD SEX: M ORDER DR: [id number] [place] [id number] [facility]. [place], [place] [address] [id number] I MR#: [id number] Acc #: [id number] NAME: COSTA PRICE : 1945 SEX: M STUDY DATE/TIME: 09/03/2016 14:46 [facility] STUDY DESCRIPTION: CR Abdomen Single AP View Attending Physician: Julienne Rowley M.D. Ordering Physician: Julienne Rowley M.D. Primary Care Physician: Eze Lubin M.D. MEDICAL IMAGING REPORT This report is preliminary unless electronic signature is present EXAM Single view of the abdomen, 09/03/2016 COMPARISON Abdomen 2 views dated 09/02/2016. HISTORY Abdominal pain and distension with blood in urine from 08/23/2016. FINDINGS 2 images of frontal view of the abdomen was obtained. There are air-filled and contrast-filled bowel loops filling most of the abdomen and extending to the pelvis and contrast-containing colon terminates in the right paramidline aspect of L5-S1 level. It is not noted to extend all of the way down to the rectum. Diverticulosis is noted with contrast filling the diverticula. It is unclear if patient has partial obstruction or ileus given the distension of the bowel loops. It has not worsened since yesterday. Degenerative multilevel changes are noted in the thoracolumbar spine and bilateral hip joints. Dictated by... Tello Munoz M.D. THIS IS AN ELECTRONICALLY VERIFIED REPORT Tello Munoz M.D. at 09/04/2016 5:12 PM CPR/srikanth TD: 09/03/2016 23:38 JOB #: [id number] MEDICAL IMAGING REPORT [facility] A Service of [facility] & [facility] RADIOLOGY TEXT RESULTS PATIENT: COSTA PRICE LOCATION: [facility] 339-01 : 44 UNIT #: [id number] AGE: [address]: Julienne Rowley MD SEX: M ORDER DR: Page 1 of 1 COPY
--- NOTE | ~2016-08-29 | OR ---
Unit #: [id number] #: [id number] Patient: COSTA PRICE [id number] [address] [place], [place] [address] [id number] I MR#: [id number] NAME: COSTA PRICE ROOM: 339 Date of Procedure: 09/01/2016 Admission Date: 08/29/2016 Surgeon: Lennox Luo M.D. : 1945 Attending Physician: Julienne Rowley M.D. Primary Care Physician: Eze Lubin M.D. OPERATIVE REPORT PRIMARY CARE PHYSICIAN Eze Lubin M.D. PREOPERATIVE DIAGNOSES Anemia of multiple etiologies including anemia of chronic gastrointestinal blood loss. PROCEDURES PERFORMED 1. Upper gastrointestinal endoscopy and biopsy. 2. Upper gastrointestinal endoscopy and foreign body removal. POSTOPERATIVE DIAGNOSES 1. The patient had an extremely large ulcers in the stomach as a result of the inner mushroom of the PEG tube being impeded in the gastric wall. This is due to very tight external securing device of the PEG tube causing pressure necrosis in the area between the skin and the gastric mucosa. As a result, the opening of the fistula is larger due to necrosis of the tissue and deep ulcer is present in the mucosal surface of the stomach. After endoscopic removal of the PEG tube, a new 24-Occitan wider-bore PEG tube was placed through the previous fistula. 2. Mild antral gastritis. A biopsy obtained from the antrum for CLOtest. 3. Rest of the examination up to third part of duodenum was normal. RECOMMENDATIONS One has to be extremely careful in managing the care of the PEG tube to ensure that it is not too tight, the patient may still have tissue necrosis and some leakage around the tube, which cannot be helped. He should stay on Protonix 40 mg via PEG tube b.i.d. at least for the next 6 months. SEDATION USED MAC. DESCRIPTION OF PROCEDURE Following detailed explanation of potential risks and complications of an upper endoscopy, namely perforation, bleeding, and complications related to sedation, the patient was brought to GI lab and laid in the supine position with head of the bed elevated. Lubricated tip of the Olympus video upper endoscope was passed through the bite block into the proximal esophagus under direct vision. The entire esophageal mucosa was examined and appeared normal. Z-line was nicely demarcated, there being no esophagitis or hiatus hernia. The scope was then advanced into the Unit #: [id number] #: [id number] Patient: COSTA PRICE gastric cavity. Mucosa of the fundus, body, and antrum was examined. The patient was noted to have the inner mushroom of the PEG tube was seen to be impeded in the gastric wall. In fact, it was stuck to the gastric mucosa with the large ulcer surrounding and underneath the mushroom. The mushroom was gently dislodged by pushing on the tube from outside and it was removed endoscopically after cutting the tube with a pair of scissors outside the skin and delivering the mushroom endoscopically outside. Through the previous fistula, the extent of the tissue necrosis and ulceration were noted and a 24-Occitan replacement gastrostomy tube was placed, confirmed endoscopically. The prepyloric antral area had mild erythema and a biopsy obtained from the antrum for CLOtest. Both the duodenal bulb, second and third part of duodenum were normal. The scope was then withdrawn and the patient returned to the recovery area. He tolerated the procedure without any postprocedure complications. Following completion of procedure, discussion was held with the patient's and the above findings were explained and it was stressed to her that he have to ensure that the tube is not too "tight" as a result of external securing device being pushed to deep towards the skin or gastric cavity. Dictated by... Andie Roberts/red TD: 09/01/2016 23:07 JOB #: [id number] CC: . . OPERATIVE REPORT Page 1 of 1 X Lennox Luo MD X PROCEDURE OPERATIVE NOTE
[~2016-08-29 14:33] MED LIST: ADRENOID CAPSU1 EACH PO; ALENDRONATE SOD70 M1 PO; ALPRAZOLAM PO; BISACODYL10 MG PR; DITROPAN PO; FLOMAX0.4 M1 PO; HEPARIN 1,1000 UNIT/ SUBQ; HYDROCODON-ACE1 EAC9 PO; LOPID600 MG PO; LYRICA100 MG PO; M.V.I. ADULT10 ML; MIRALAX17 GM PO; MORPHINE S30 MG/301 PO; NIACIN500 M2 PO; OMEPRAZOLE20 M1 PO; PROAIR RESPICL90 MCG INH; REMERON15 MG PO; SENNA8.6 M1 PO; STRIVERDI RESPIM4 GM INH; SYMBICORT 160/4.6 G1 INH; TYLENOL325 M1 PO; VITAMIN C500 MG PO; VITAMIN D-32000 UNI1 PO; ZINC SULFATE220 M1 PO
[2016-08-29 15:56] LABS: BASOPHIL% 0.2 % (0-2.5); DIFF IND YES; EOSINOPHIL# 0.1 X10e3 (0-0.7); EOSINOPHIL% 0.5 % (0.0-7.0); HEMATOCRIT 24.1 % (38.0-50.0); HEMOGLOBIN 7.9 gm/dL (13.0-16.0); LYMPHOCYTE# 0.7 X10e3 (1.0-3.5); LYMPHOCYTE% 5.9 % (17.0-45.0); MEAN CELL VOLUME 90.7 FL (83-96); MEAN CORPUSCULAR HEMOGLOBIN 29.6 PG (28-34); MEAN CORPUSCULAR HGB CONC 32.6 g/dL (30-36); MEAN PLATELET VOLUME 10.6 FL (6.5-11.5); MONOCYTE# 0.3 X10e3 (0-1.0); MONOCYTE% 2.7 % (3.0-12.0); NEUTROPHIL# 10.9 X10e3 (1.5-7.1); NEUTROPHIL% 90.7 % (40-75); PLATELET COUNT 223 X10e3 (140-420); RED BLOOD COUNT 2.66 X10e (3.90-5.60); RED CELL DISTRIBUTION WIDTH 14.7 % (11.0-15.5); WHITE BLOOD COUNT 12.1 X10e3 (4.0-10.5)
[2016-08-29 16:00] LABS: POC - CKMB 1.3 ng/mL (0.0-7.9); POC - TROPONIN <0.05 ng/mL (<=0.05)
[2016-08-29 16:09] LABS: ALBUMIN SERUM 2.9 g/dL (3.5-5.0); BILIRUBIN, DIRECT 0.2 mg/dL (0.0-0.2); BILIRUBIN,TOTAL 1.2 mg/dL (0.2-2.0); BUN/CREATININE RATIO 46.66; CALCIUM SERUM 8.6 mg/dL (8.4-10.2); CREATININE SERUM 0.6 mg/dL (0.6-1.4); GLOM FILT RATE Estimated 100.5 mL/min (>60); POTASSIUM 3.3 mmol/L (3.5-5.1); PROTEIN TOTAL SERUM 6.7 g/dL (6.0-8.3)
[2016-08-29 16:19] LABS: PLATELET ESTIMATE NORMAL (NORMAL)
[2016-08-29] MEDS ORDERED: SYMBICORT INH (16:45)
[2016-08-29] MEDS ORDERED: CYMBALTA30 M1 PO (16:45)
[2016-08-29] MEDS ORDERED: FLOMAX0.4 M1 PO (16:45)
[2016-08-29] MEDS ORDERED: IPRAT-ALBUT 0.5-3 ML NEB (16:45)
[2016-08-29] MEDS ORDERED: TYLENOL325 M1 PO (16:45)
[2016-08-29] MEDS ORDERED: ZOFRAN PO (16:46)
[2016-08-29] MEDS ORDERED: NORVASC PO (16:46)
[2016-08-29] MEDS ORDERED: HYDROCODON-ACE1 EAC7 PO (16:47)
[2016-08-29] MEDS ORDERED: PROTONIX40 M1 PO (16:47)
[2016-08-29] MEDS ORDERED: DIFLUCAN PO (16:48)
[2016-08-29] MEDS ORDERED: SODIUM CHLORIDE3 M1 NEB (16:48)
[2016-08-30 07:46] LABS: ALBUMIN SERUM 2.6 g/dL (3.5-5.0); BILIRUBIN,TOTAL 0.9 mg/dL (0.2-2.0); BUN/CREATININE RATIO 46.66; CALCIUM SERUM 8.4 mg/dL (8.4-10.2); CREATININE SERUM 0.6 mg/dL (0.6-1.4); GLOM FILT RATE Estimated 100.5 mL/min (>60); MAGNESIUM 2.3 mg/dL (1.6-3.0); POTASSIUM 3.8 mmol/L (3.5-5.1); PROTEIN TOTAL SERUM 5.8 g/dL (6.0-8.3)
[2016-08-30 07:51] LABS: HEMATOCRIT 23.7 % (38.0-50.0); HEMOGLOBIN 7.7 gm/dL (13.0-16.0); MEAN CELL VOLUME 90.4 FL (83-96); MEAN CORPUSCULAR HEMOGLOBIN 29.3 PG (28-34); MEAN CORPUSCULAR HGB CONC 32.4 g/dL (30-36); RED BLOOD COUNT 2.62 X10e (3.90-5.60); RED CELL DISTRIBUTION WIDTH 14.8 % (11.0-15.5); WHITE BLOOD COUNT 14.9 X10e3 (4.0-10.5)
[2016-08-31 05:46] LABS: BASOPHIL% 0.1 % (0-2.5); HEMATOCRIT 23.4 % (38.0-50.0); HEMOGLOBIN 7.4 gm/dL (13.0-16.0); LYMPHOCYTE# 0.3 X10e3 (1.0-3.5); LYMPHOCYTE% 2.5 % (17.0-45.0); MEAN CELL VOLUME 91.5 FL (83-96); MEAN CORPUSCULAR HEMOGLOBIN 29.1 PG (28-34); MEAN CORPUSCULAR HGB CONC 31.8 g/dL (30-36); MEAN PLATELET VOLUME 9.9 FL (6.5-11.5); MONOCYTE# 0.2 X10e3 (0-1.0); MONOCYTE% 1.4 % (3.0-12.0); NEUTROPHIL# 13.1 X10e3 (1.5-7.1); PLATELET COUNT 228 X10e3 (140-420); RED BLOOD COUNT 2.56 X10e (3.90-5.60); RED CELL DISTRIBUTION WIDTH 15.2 % (11.0-15.5); WHITE BLOOD COUNT 13.6 X10e3 (4.0-10.5)
[2016-08-31 05:49] LABS: DIFF IND NO
[2016-08-31 06:28] LABS: ALBUMIN SERUM 2.7 g/dL (3.5-5.0); BILIRUBIN,TOTAL 0.7 mg/dL (0.2-2.0); BUN/CREATININE RATIO 51.66; CALCIUM SERUM 8.3 mg/dL (8.4-10.2); CREATININE SERUM 0.6 mg/dL (0.6-1.4); GLOM FILT RATE Estimated 100.5 mL/min (>60); POTASSIUM 3.2 mmol/L (3.5-5.1); PROTEIN TOTAL SERUM 5.6 g/dL (6.0-8.3)
[2016-09-01 08:08] LABS: MEAN CELL VOLUME 89.7 FL (83-96); MEAN CORPUSCULAR HEMOGLOBIN 29.6 PG (28-34); MEAN PLATELET VOLUME 9.6 FL (6.5-11.5); RED BLOOD COUNT 3.24 X10e (3.90-5.60); RED CELL DISTRIBUTION WIDTH 15.1 % (11.0-15.5); WHITE BLOOD COUNT 12.6 X10e3 (4.0-10.5)
[2016-09-01 08:22] LABS: HEMOGLOBIN 9.6 gm/dL (13.0-16.0)
[2016-09-01 09:44] LABS: BILIRUBIN,TOTAL 0.7 mg/dL (0.2-2.0); CALCIUM SERUM 8.8 mg/dL (8.4-10.2); CREATININE SERUM 0.6 mg/dL (0.6-1.4); GLOM FILT RATE Estimated 100.5 mL/min (>60); POTASSIUM 3.1 mmol/L (3.5-5.1); PROTEIN TOTAL SERUM 6.1 g/dL (6.0-8.3)
[2016-09-01 09:48] LABS: FOLATE (FOLIC ACID) 7.1 ng/mL (>5.8)
[2016-09-01 12:22] LABS: ARTERIAL BLD GAS O2 SATURATION 91.5 % (90.0-100.0); ARTERIAL BLOOD GAS CARBOXY HB 1.3 %sat (0.0-9.0); ARTERIAL BLOOD GAS HCO3 33.9 mmol/L; ARTERIAL BLOOD GAS MET HB 0.6 %sat (0.0-2.0); ARTERIAL BLOOD GAS PCO2 46.2 mmHg (35.0-45.0); ARTERIAL BLOOD GAS PO2 57.2 mmHg (80.0-100); ARTERIAL BLOOD GAS pH 7.474 (7.350-7.450)
[2016-09-01 12:23] LABS: ARTERIAL BLOOD GAS ALLEN TEST N; ARTERIAL BLOOD GAS ART SITE LEFT RADIAL; ARTERIAL BLOOD GAS DELIVERY NASAL CANNULA; ARTERIAL DRAW? YES
[2016-09-02 06:55] LABS: HEMATOCRIT 29.4 % (38.0-50.0); HEMOGLOBIN 9.7 gm/dL (13.0-16.0); MEAN CELL VOLUME 89.6 FL (83-96); MEAN CORPUSCULAR HEMOGLOBIN 29.5 PG (28-34); MEAN CORPUSCULAR HGB CONC 32.9 g/dL (30-36); MEAN PLATELET VOLUME 9.6 FL (6.5-11.5); RED BLOOD COUNT 3.28 X10e (3.90-5.60); RED CELL DISTRIBUTION WIDTH 14.9 % (11.0-15.5); WHITE BLOOD COUNT 10.3 X10e3 (4.0-10.5)
[2016-09-02 07:31] LABS: BILIRUBIN,TOTAL 0.6 mg/dL (0.2-2.0); BUN/CREATININE RATIO 63.33; CALCIUM SERUM 8.8 mg/dL (8.4-10.2); CREATININE SERUM 0.6 mg/dL (0.6-1.4); GLOM FILT RATE Estimated 100.5 mL/min (>60); PROTEIN TOTAL SERUM 6.4 g/dL (6.0-8.3)
[2016-09-03 05:39] LABS: HEMATOCRIT 32.2 % (38.0-50.0); HEMOGLOBIN 10.3 gm/dL (13.0-16.0); MEAN CELL VOLUME 90.3 FL (83-96); MEAN CORPUSCULAR HEMOGLOBIN 28.9 PG (28-34); MEAN PLATELET VOLUME 9.8 FL (6.5-11.5); RED BLOOD COUNT 3.57 X10e (3.90-5.60); WHITE BLOOD COUNT 13.7 X10e3 (4.0-10.5)
[2016-09-03 06:45] LABS: CALCIUM SERUM 8.9 mg/dL (8.4-10.2); CREATININE SERUM 0.5 mg/dL (0.6-1.4); GLOM FILT RATE Estimated 108.3 mL/min (>60); POTASSIUM 3.8 mmol/L (3.5-5.1)
[2016-09-04 08:08] LABS: HEMOGLOBIN 10.1 gm/dL (13.0-16.0); MEAN CELL VOLUME 90.4 FL (83-96); MEAN CORPUSCULAR HEMOGLOBIN 29.4 PG (28-34); MEAN CORPUSCULAR HGB CONC 32.6 g/dL (30-36); MEAN PLATELET VOLUME 9.9 FL (6.5-11.5); RED BLOOD COUNT 3.43 X10e (3.90-5.60); RED CELL DISTRIBUTION WIDTH 14.4 % (11.0-15.5); WHITE BLOOD COUNT 13.9 X10e3 (4.0-10.5)
[2016-09-04 08:24] LABS: CALCIUM SERUM 8.4 mg/dL (8.4-10.2); CREATININE SERUM 0.5 mg/dL (0.6-1.4); GLOM FILT RATE Estimated 108.3 mL/min (>60); URIC ACID 5.6 mg/dL (2.6-7.2)
== END 2016-09-04 13:56 | DRG 189 ==
LOC: CED 14:33 → CEDOF 16:55 → CED 17:31 → C3A PCU 20:08 → CEDOF 20:08 → C3A PCU 20:08
PROVIDERS: Emergency Medicine; Family Medicine; Internal Medicine; Internal Medicine Gastroenterology
PROC: 30233N1 Transfusion of Nonautologous Red Blood Cells into Peripheral Vein, Percutaneous Approach (ICD-10-PCS; 2016-08-31)
PROC: 0DB78ZX Excision of Stomach, Pylorus, Via Natural or Artificial Opening Endoscopic, Diagnostic (ICD-10-PCS; principal; 2016-09-01 16:04)
PROC: 0DP6XUZ Removal of Feeding Device from Stomach, External Approach (ICD-10-PCS; 2016-09-01 16:04)
DX: J96.21 Acute and chronic respiratory failure with hypoxia (principal); E43 Unspecified severe protein-calorie malnutrition; E87.0 Hyperosmolality and hypernatremia; I11.0 Hypertensive heart disease with heart failure; I50.22 Chronic systolic (congestive) heart failure; K56.7 Ileus, unspecified; T83.83XA Hemorrhage due to genitourinary prosthetic devices, implants and grafts, initial encounter; J44.9 Chronic obstructive pulmonary disease, unspecified; M62.3 Immobility syndrome (paraplegic); R31.9 Hematuria, unspecified; G89.4 Chronic pain syndrome; R13.10 Dysphagia, unspecified; D64.9 Anemia, unspecified; M81.0 Age-related osteoporosis without current pathological fracture; I25.2 Old myocardial infarction; K25.9 Gastric ulcer, unspecified as acute or chronic, without hemorrhage or perforation
CPT/HCPCS: 36415; 36600; 71010; 71250; 74000; 74020; 80048; 80053; 80076; 80200; 80202; 82274; 82308; 82553; 82607; 82728; 82746; 82803; 82947; 83540; 83550; 83605; 83735; 83880; 84443; 84484; 84550; 85025; 85027; 86850; 86900; 86901; 86923; 87040; 87077; 93005; 94640; 94664; 94760; 96374; 97163; 97167; 97530; 99285; G8978-GP; G8979-GP; G8987-GO; G8988-GO; J1815; J1940; J2250; J2270; J2543; J2765; J2920; J2930; J3260; J3370; P9016